=== PATIENT | female | born 1950 | race Caucasian/White ===

== ENCOUNTER 2018-02-19 16:33 | Emergency (ER) | payer OTHER, SELFPAY ==
[2018-02-19 16:35] VITALS: BP 128/69; PULSE 96; PULSE 97; RESP 14; RESP 18; TEMP 36.8; O2SAT 97; O2SAT 98; BMI 22.8
[2018-02-19 16:52] VITALS: O2SAT 96
--- NOTE | 2018-02-19 17:18 | CT_ITS ---
STUDY: CT BRAIN WITHOUT CONTRAST REASON FOR EXAM: Female, 67 years old. Fall with trauma and hit back of head. Patient on Coumadin. RADIATION DOSAGE (If Supplied By Facility): CTDIvol = ( 44.99 ) mGy, DLP = ( 745.49 ) mGycm TECHNIQUE: Transaxial CT imaging of the brain was performed without administration of intravenous contrast material. Individualized dose optimization techniques were used for this CT. COMPARISON: None. FINDINGS: There is minimal left occipital scalp swelling. Normal calvarium. Normal size ventricles and extra-axial spaces for the patient's age. Normal white matter tracts of the cerebral hemispheres. Normal basal ganglia and thalami. Normal brainstem. Normal cerebellum. There is no intracranial hemorrhage. There are no findings of an acute ischemic infarction. Normal visualized paranasal sinuses. CT/Brain/Head without Contrast IMPRESSION: Minimal left occipital scalp swelling. No acute intracranial injury. Electronically Signed: Eusebio Conti MD at 18:27 EDT , Service support ,
--- NOTE | 2018-02-19 17:18 | CT_ITS ---
STUDY: CT CERVICAL SPINE WITHOUT CONTRAST REASON FOR EXAM: Female, 67 years old. Trauma, hit back of head. RADIATION DOSAGE (If Supplied By Facility): CTDIvol = ( 13.92 ) mGy, DLP = ( 259.88 ) mGycm TECHNIQUE: High resolution transaxial imaging was performed without contrast material. Sagittal and coronal images were reconstructed. Individualized dose optimization techniques were used for this CT. COMPARISON: None FINDINGS: Normal craniovertebral junction. There are degenerative changes of the anterior atlantoaxial articulation. Normal odontoid process. There is straightening of March of the normal cervical lordosis. No acute fracture of the vertebral bodies and posterior osseous elements. C2-3: Normal endplates. Normal disc height and morphology. Normal bilateral facet articulations. Normal central canal and intervertebral neuroforamina. C3-4: There is endplate spurring/osteophytes. Moderate disc height narrowing. Mild hypertrophic degenerative arthrosis of the facet articulations. Borderline retrolisthesis of C3 on C4. Early osseous encroachment on the central canal and right intervertebral neuroforamen. C4-5: Near circumferential endplate osteophytes. Moderate disc height narrowing with vacuum phenomenon due to disc dehydration and wide-based posterior disc bulge. Early hypertrophic degenerative arthroses of the bilateral facet articulations. Mild disc encroachment on the anterior central canal. Normal intervertebral neuroforamina. C5-6: Near circumferential endplate osteophytes. Moderate disc height narrowing. Normal bilateral facet articulations. Normal central canal and intervertebral neuroforamina. C6-7: Circumferential endplate osteophytes. Moderately severe disc height narrowing with mild right posterolateral disc protrusion. Early hypertrophic degenerative change of the left facet articulation. Mild osseous and disc encroachment on the right anterior central canal. Mild osseous narrowing of the right intervertebral neuroforamen. C7-T1: Anterior endplate osteophytes. Minor disc height narrowing. Mild hypertrophic degenerative arthrosis of the bilateral facet articulations, with moderate joint space narrowing on the left. Normal central canal and intervertebral neuroforamina. Normal visualized prevertebral soft tissue structures. Additional/interlobular curvilinear densities in the visualized lung apices are consistent with sites of subsegmental atelectasis or scarring. CT/Spine Cervical without Contras IMPRESSION: 1. No acute fracture of the cervical spine. 2. Multilevel degenerative changes, as described above. Electronically Signed: Eusebio Conti MD at 19:18 EDT , Service support ,
--- NOTE | 2018-02-19 17:18 | RAD_ITS ---
STUDY: X-RAY - SACRUM/COCCYX REASON FOR EXAM: Female, 67 years old. Fall backwards. Pain. TECHNIQUE: 3 view(s) of the sacrum and coccyx were obtained. COMPARISON: None. FINDINGS: Normal bilateral sacroiliac joints. Normal visualized sacral ala and fused sacral bodies. Normal sacrococcygeal junction with a normal angulation. Normal coccygeal segments. The presacral soft tissue structures are unremarkable. RAD/Sacrum-Coccyx min 2 Views IMPRESSION: No significant abnormality. Electronically Signed: Juan Jose Lobo MD at 18:34 EDT , Service support ,
--- NOTE | 2018-02-19 17:18 | RAD_ITS ---
STUDY: X-RAY - THORACIC SPINE REASON FOR EXAM: Female, 67 years old. Fall backwards. Hit head and tail bone. TECHNIQUE: 3 view(s) of the thoracic spine were obtained. COMPARISON: None. FINDINGS: Normal kyphosis of the thoracic spine. There is no substantial scoliosis. Normal thoracic vertebrae and endplates. There is diffuse mild intervertebral disc space narrowing with small osteophytes. The soft tissue structures are unremarkable. RAD/Thoracic Spine 3 Views IMPRESSION: Cervico-thoracic spondylosis. No acute pathology. Electronically Signed: Juan Jose Lobo MD at 18:42 EDT , Service support ,
--- NOTE | 2018-02-19 17:18 | RAD_ITS ---
STUDY: X-RAY - PELVIS REASON FOR EXAM: Female, 67 years old. Injury and pain TECHNIQUE: One view of the pelvis was obtained. COMPARISON: None. FINDINGS: There is a non-specific bowel gas pattern. The soft tissues are unremarkable. The visualized iliac wings, sacroiliac joints and sacrum are unremarkable. No abnormalities are seen in the visualized superior and inferior pubic rami. Normal appearing pubic symphysis. The visualized ischial tuberosities are unremarkable. The proximal right femur shows no significant abnormalities. The right acetabulum shows no significant abnormalities. The right hip joint is normal in appearance. The proximal left femur shows no significant abnormalities. The left acetabulum shows no significant abnormalities. The left hip joint is normal in appearance. RAD/Pelvis 1 or 2 Views IMPRESSION: No acute abnormalities are seen in the pelvis. Electronically Signed: Jennifer Ballesteros MD at 18:35 EDT Tel Direct: [phone], Service support ,
--- NOTE | 2018-02-19 17:20 | EKG12_ITS ---
Test Reason : FALL Blood Pressure : / mmHG Vent. Rate : 100 BPM Atrial Rate : 100 BPM P-R Int : 172 ms QRS Dur : 090 ms QT Int : 366 ms P-R-T Axes : 074 -71 082 degrees QTc Int : 472 ms Normal sinus rhythm Left anterior fascicular block Abnormal ECG Confirmed by MENDEZ VARMA, XAVI ([id number]), food expeditor ROSE CARLSON ([id number]) on 02/22/2018 9:02:09 AM Referred By: Confirmed By:XAVI SIMMS MD
--- NOTE | 2018-02-19 17:24 | ED.DCSUM_ITS ---
- ER Visit Summary Date of Service: 02/19/18 Chief Complaint: Fall History of Present Illness: The patient is a 67 F presenting after fall. Patient was playing with children and she was sitting on a low barstool. She fell backwards hitting the back of her head. She did not lose consciousness. After the fall she felt dizzy. She has had nausea. She complains of pain in the back of her head and pain of her tailbone. She is on Coumadin for history of A. fib. Last tetanus is unknown. Physical Examination: Vitals are stable. Patient is afebrile. Alert no acute distress. HEENT exam mild occipital tenderness with no laceration Neck is nontender, c-collar in place Lungs are clear and equal bilaterally. Heart is regular rate and rhythm. Abdomen is soft nontender nondistended. Extremities are unremarkable. Back: Lumbar tenderness diffuse, no step-off Skin is warm and dry. No focal neurologic deficit. Remainder of exam is unremarkable. Emergency Department Course and Treatment: Patient given morphine, Zofran IV. EKG is sinus rate of 100. CT head shows left occipital scalp swelling with no intracranial hemorrhage. CT C-spine shows no fracture. X-ray of the thoracic and lumbar spine shows no fracture. Pelvis x-ray is negative for fracture. CBC , chemistries unremarkable other than BUN 21, creatinine 1.04. INR 2.2. Troponin is 0.019. Patient continues to have dizziness with standing. She is able to ambulate to the bathroom with assistance. She still complains of dizziness with sitting up on reevaluation. Discussed with the hospitalist. Patient was evaluated in the ED and it is felt that she does not require admission at this time. She will be sent home with close outpatient follow-up with her primary care physician. She is advised signs and symptoms for which to return to the emergency department. Disposition: Discharged home Impression: Closed head injury status post mechanical fall This note was generated with [employer] dictation software. It may contain incorrect words, spelling, and punctuation that were not noted in review of the chart prior to signing ED Disposition - Plan for ED Patient: Disposition: Home or Assisted Living Chief Complaint: Fall Instructions: ED Head Injury Closed Referrals: Renetta Mendoza MD [STAFF PHYSICIAN] -
--- NOTE | 2018-02-19 17:45 | RAD_ITS ---
STUDY: X-RAY - LUMBAR SPINE REASON FOR EXAM: Female, 67 years old. Fall backwards. Hit tailbone. Pain. TECHNIQUE: 3 view(s) of the lumbar spine were obtained. COMPARISON: None FINDINGS: Normal lumbar lordosis. There is no substantial scoliosis. There is a normal alignment of the vertebrae. Normal vertebral bodies and endplates. Normal disc space heights. The soft tissue structures are unremarkable. RAD/Lumbar Spine 2 or 3 Views IMPRESSION: No significant abnormality identified. Electronically Signed: Juan Jose Lobo MD at 18:41 EDT , Service support ,
[2018-02-19 17:47] LABS: Absolute Neutrophil Count 5.4 X10^3/uL (2.0-7.7); Basophil# 0.04 X10^3/uL; Basophil% 0.5 % (0-1); Eosinophil# 0.16 X10^3/uL; Hematocrit 37.6 % (37-47); Hemoglobin 12.4 g/dl (12.0-15.0); Lymphocyte % 22.3 % (19-41); Mean Corpuscular Hgb 30.5 pg (27.0-32.0); Mean Corpuscular Volume 92.6 fL (81-99); Mean Platelet Vol. 10.8 fl (6.2-12.0); Monocyte# 0.65 X10^3/uL; Neutrophil # 5.42 X10^3/uL (2.7-7.7); Neutrophil % 67.1 % (47-70); Platelet Count 263 K/mm3 (150-450); RBC Distribution Width CV 13.5 % (11.6-14.6); RBC Distribution Width SD 45.1 fl (35.1-43.9); Red Blood Count 4.06 M/mm3 (4.2-5.4); White Blood Count 8.1 K/mm3 (4.4-11.0)
[2018-02-19 17:53] LABS: POSITIVE COUNT NO; POSITIVE DIFFERENTIAL NO; POSITIVE MORPHOLOGY NO
[2018-02-19 17:54] LABS: International Normalized Ratio 2.2; Prothrombin Time (Protime)PT. 24.9 SECONDS (11.7-14.9)
[2018-02-19 18:00] LABS: BUN 21 mg/dL (7-18); Creatinine, Serum 1.04 mg/dL (0.55-1.02); Glucose 93 mg/dL (74-106)
[2018-02-19 18:01] LABS: Anion Gap 5 (5-15); BUN/Creat Ratio 20.2 RATIO (10-20); Chloride 108 mmol/L (98-107); EST Glomerular Filtration Rate 56 mL/min (>60); Est Glom Filt Rate - Afr Amer 68 mL/min (>60); Estimated Creatinine Clearance 38.22 ml/min; Potassium 3.8 mmol/L (3.5-5.1); Sodium Level 142 mmol/L (136-145)
--- NOTE | 2018-02-19 21:26 | ED.DEP ---
ED Disposition - Plan for ED Patient: Chief Complaint: Fall Instructions: ED Head Injury Closed Referrals: Renetta Mendoza MD [STAFF PHYSICIAN] -
[2018-02-19 21:46] VITALS: BP 115/70; PULSE 80; PULSE 85; RESP 14; O2SAT 98
--- NOTE | 2018-02-19 23:26 | CON.PCM_ITS ---
Problem List (1) Fall Status: Acute (2) Afib Status: Chronic (3) Mitral valve disorder Status: Chronic (4) Concussion Status: Acute (5) Scalp contusion Status: Acute Reason for Consult Date of Consultation: 02/19/18 Reason for Consultation: Fall History of Present Illness: The patient is a 67 year old F with a PMH as above, presents to the ER after a mechanical fall at home. She was playing on a stool with her grandkids and she slipped off the stool and her her head on a table behind her. She did not have any LOC, however when she was helped up by her family she felt very lightheaded and dizzy and almost fainted. At no point prior to this episode did she have palpitations, lightheadedness, dizziness or blurry vision. In the ER CT head, c- spine and plain films of her spine were negative for any trauma. She currently denies any significant pain and while lying in bed she does not have a headache , lightheadedness or dizziness. Past Medical History Past Medical History (Chronic Problems): Chronic Problems Afib (Chronic) Mitral valve disorder (Chronic) Allergies No Known Allergies Allergy (Verified 02/19/18 16:34) Home Medications: Ambulatory Orders Medication Instructions Recorded Metoprolol Tartrate 6.25 mg PO BID 06/27/15 Tikosyn 0.25 mg PO BID 06/27/15 Warfarin [Coumadin ([facility])] 2 mg PO DAILY 06/27/15 Warfarin [Coumadin ([facility])] 3 mg PO COLON 06/27/15 Surgical History: - - [facility] Lives: Alone Smoking Status: Never smoker Alcohol: None Drugs: None - *Family History Maternal History Items: No pertinent history Review of Systems Constitutional: Denies: Chills, Fever, Weight Change HEENT: Denies: Head Aches, Sinus Congestion, Sinus Drainage Cardiovascular: Denies: Chest Pain, Palpitations Respiratory: Denies: Cough, Shortness of breath at rest, Sputum production Gastrointestinal: Denies: Abdominal Pain, Nausea, Vomiting Genitourinary: Denies: Dysuria Musculoskeletal: Denies: Joint Pain, Joint Tenderness Skin: Denies: Rash, Wounds Neurological: Reports: Headaches. Denies: Focal weakness, Numbness, Tingling Psychiatric: Denies: Anxiety, Depression Hematologic/ Lymphatic: Denies: Easy Bruising, Easy Bleeding - Physical Exam General: Alert, Oriented x3, Cooperative, No apparent distress HEENT: Atraumatic, PERRLA, EOMI, Normocephalic, - - contusion on her left occiput Neck: Supple, No JVD Lungs: Clear to auscultation, Normal air movement, No rhonchi, No wheeze, No rales Cardiovascular: Regular rate, Regular Rhythm, Normal S1, Normal S2, No murmurs Abdomen: Soft, Non Tender, Non-Distended, No Hepato-splenomegaly Extremities: No edema, Capillary Refill Less than 3 Seconds Skin: No rashes, No breakdown Musculoskeletal: No Tenderness to Palpation of Joints or Extremities Neurological: Neuro grossly intact, Sensory exam intact to light touch and pain Psych/Mental Status: Normal Affect, Appropriate Vital Signs Temp Pulse Resp BP Pulse Ox 98.3 F 85 14 115/70 98 02/19/18 16:35 02/19/18 21:46 02/19/18 21:46 02/19/18 21:46 02/19/18 21:46 Oxygen Delivery Method Room Air Weight: 117 lb Body Mass Index (BMI) 22.8 Laboratory Tests Past 24 Hrs 02/19/18 02/19/18 02/19/18 16:55 16:55 16:55 WBC 8.1 RBC 4.06 L Hgb 12.4 Hct 37.6 MCV 92.6 MCH 30.5 MCHC 33.0 RDW 13.5 RDW Differential 45.1 H Plt Count 263 MPV 10.8 Immature Gran % (Auto) 0.100 Neut % (Auto) 67.1 Lymph % (Auto) 22.3 Boyd % (Auto) 8.0 Eos % (Auto) 2.0 Baso % (Auto) 0.5 Absolute Neuts (auto) 5.4 Absolute Lymphs (auto) 1.80 Total Counted Not Reportable PT 24.9 H INR 2.2 Sodium 142 Potassium 3.8 Chloride 108 H Carbon Dioxide 29.0 Anion Gap 5 BUN 21 H Creatinine 1.04 H Estim Creat Clear Calc 38.22 Est GFR (MDRD) Af Amer 68 Est GFR (MDRD) Non-Af 56 L BUN/Creatinine Ratio 20.2 H Glucose 93 Calcium 9.0 Troponin I 0.019 Assessment/Plan All Active Problems Fall (Acute) Concussion (Acute) Scalp contusion (Acute) 1. Concussion after a mechanical fall/Contusion - CT brain is negative and she has a lot of family she can stay with - I discussed with her what we would do in the hospital and she prefers to go home - She is to take it easy with no strenuous activity and no intense mental activity - She is to follow-up with her PCP on tuesday or Tuesday - I advised that she return to the hospital if she has any change in her symptoms or worsening of her symptoms - Her contusion does not appear to be bleeding so local wound care was advised 2. A-fib - Stable and does not appear to be the cause of the fall - She can continue her coumadin as usual since there was no bleeding on her head CT - C/w mary kate Code Visit Inpatient E&M: [id number] [facility] L3
== END 2018-02-19 21:50 | disposition home or self-care (01) ==
LOC: ED 18:48
PROVIDERS: Emergency Provider Emergency Medicine; Family Provider Internal Medicine; PCP Internal Medicine
DX: S06.0X0A Concussion without loss of consciousness, initial encounter (principal); S00.93XA Contusion of unspecified part of head, initial encounter; I48.91 Unspecified atrial fibrillation; Z79.01 Long term (current) use of anticoagulants; Z79.899 Other long term (current) drug therapy; W07.XXXA Fall from chair, initial encounter; Y93.89 Activity, other specified; Y92.89 Other specified places as the place of occurrence of the external cause; Y99.8 Other external cause status
CPT/HCPCS: 70450; 72072; 72100; 72125; 72170; 72220; 80048; 84484; 85025; 85610; 93005; 99285; A4216

== ENCOUNTER 2018-07-10 09:15 | Observation (INO) | payer OTHER, SELFPAY ==
[2018-07-10] VITALS (27 sets, daily range): BP systolic 87–140; BP diastolic 49–93; PULSE 62–150; RESP 14–24; TEMP 36.5–36.9; O2SAT 94–100; BMI 25.9; BMI 22.2; BMI 22.3
--- NOTE | 2018-07-10 09:18 | EKG12_ITS ---
Test Reason : CP Blood Pressure : / mmHG Vent. Rate : 125 BPM Atrial Rate : 125 BPM P-R Int : 178 ms QRS Dur : 084 ms QT Int : 332 ms P-R-T Axes : 083 -76 080 degrees QTc Int : 479 ms Sinus tachycardia with Premature atrial complexes with Aberrant conduction Left anterior fascicular block Possible Anterior infarct , age undetermined Abnormal ECG Confirmed by MENDEZ VARMA, XAVI ([id number]), supervising film or videotape editor ROSE CARLSON ([id number]) on 07/14/2018 8:56:09 AM Referred By: RAYN/JESUS Confirmed By:XAVI SIMMS MD
[2018-07-10] MEDS: Aspirin 81 MG TAB.CHEW 324 MG PO (09:24)
--- NOTE | 2018-07-10 09:26 | RAD_ITS ---
STUDY: X-RAY CHEST REASON FOR EXAM: Female, 67 years old. Chest pain. History of mitral valve replacement. TECHNIQUE: Single AP portable view of the chest. COMPARISON: Comparison is made with prior study dated June 27, 2015. FINDINGS: EKG electrodes are seen. Hyperinflation. Stable pleural parenchymal changes at the left lung base suggestive of scarring. Sternal cerclage wires are present from a prior sternotomy. Normal mediastinum and debra. Normal visualized pulmonary arteries. Normal visualized aortic arch and descending thoracic aorta. Normal visualized thoracic spine. Normal visualized ribs, clavicles, and shoulders. There is no demonstrated abnormality of the visualized soft tissue structures of the upper abdomen. RAD/Chest 1 View (Portable) IMPRESSION: Stable pleural parenchymal changes at the left lung base. Electronically Signed: Napoleon Gonsalez MD at 9:44 EST , Service support ,
[2018-07-10 09:31] LABS: Absolute Lymphocyte Count 1.66 X10^3/ul (0.83-4.51); Absolute Neutrophil Count 7.8 X10^3/uL (2.0-7.7); Basophil# 0.03 X10^3/uL; Basophil% 0.3 % (0-1); Eosinophil# 0.06 X10^3/uL; Eosinophils% 0.6 % (0-5); Hematocrit 45.4 % (37-47); Hemoglobin 14.7 g/dl (12.0-15.0); Lymphocyte # 1.66 X10^3/ul (4.0); Lymphocyte % 16.3 % (19-41); Mean Corp Hgb Conc 32.4 g/gl (32-36); Mean Corpuscular Hgb 30.4 pg (27.0-32.0); Mean Corpuscular Volume 93.8 fL (81-99); Mean Platelet Vol. 10.2 fl (6.2-12.0); Monocyte# 0.61 X10^3/uL; Neutrophil % 76.6 % (47-70); Platelet Count 318 K/mm3 (150-450); RBC Distribution Width CV 13.6 % (11.6-14.6); RBC Distribution Width SD 45.4 fl (35.1-43.9); Red Blood Count 4.84 M/mm3 (4.2-5.4); White Blood Count 10.2 K/mm3 (4.4-11.0)
[2018-07-10 09:32] LABS: POSITIVE COUNT NO; POSITIVE DIFFERENTIAL NO; POSITIVE MORPHOLOGY NO
--- NOTE | 2018-07-10 09:33 | ED.VISSUMM ---
- ER Visit Summary Date of Service: 07/10/18 Chief Complaint: Palpitations and chest pain History of Present Illness: The patient is a 67 F history of atrial flutter on Coumadin with a prior prosthetic mitral valve replacement. Patient states on Tuesday she started having heart rate. Intermittent dyspnea. And today he had some chest discomfort. She denies any fever or chills. No leg pain or swelling. Physical Examination: Older female no acute distress. Vital signs are stable. Her pulse ox 100% on 2 L no hypoxia. H EENT exam unremarkable. Neck nontender. No lymphadenopathy. Lungs clear to auscultation bilaterally. Heart tachycardic rate about 120. Sounds regular with occasional PVC. Obvious P waves on the monitor. Abdomen is soft and nontender. Normal bowel sounds no peritoneal signs. Remedies moves all 4. Calves nontender without edema or cords. Neurologically she is awake and alert with no focal motor deficits. She is moving all 4 extremities. Test Results: Initial EKG shows a sinus tachycardia with PACs and PVCs. No signs of HI or ischemia. Rate of 125. Chest x-ray shows chronic changes left lung base but no acute change or process read both by myself and the radiologist. CBC normal white count of 10. Hemoglobin 14. Chemistries normal. She is on Coumadin INR is subtherapeutic at 1.6 and her troponin is normal. Emergency Department Course and Treatment: Patient will undergo cardiac workup. She is on Coumadin. When offered aspirin she wanted to hold at this time. Treatment Plan: Repeat exam at 10:40 AM the patient is doing well. She and I went over all of her test results. Due to her nonspecific chest pain I do feel she warrants admission for further evaluation and workup and cardiac monitoring. She is comfortable with that plan. I have the hospitalist on page. Disposition: Admission Impression: Acute palpitations with chest pain of uncertain etiology This note was generated with [employer] dictation software. It may contain incorrect words, spelling, and punctuation that were not noted in review of the chart prior to signing ED Disposition - Plan for ED Patient: Referrals: Lenora Louise MD [Primary Care Provider] -
--- NOTE | 2018-07-10 09:36 | ED.DCSUM_ITS ---
- ER Visit Summary Date of Service: 07/10/18 Chief Complaint: Palpitations and chest pain History of Present Illness: The patient is a 67 F history of atrial flutter on Coumadin with a prior prosthetic mitral valve replacement. Patient states on Tuesday she started having heart rate. Intermittent dyspnea. And today he had some chest discomfort. She denies any fever or chills. No leg pain or swelling. Physical Examination: Older female no acute distress. Vital signs are stable. Her pulse ox 100% on 2 L no hypoxia. H EENT exam unremarkable. Neck nontender. No lymphadenopathy. Lungs clear to auscultation bilaterally. Heart tachycardic rate about 120. Sounds regular with occasional PVC. Obvious P waves on the monitor. Abdomen is soft and nontender. Normal bowel sounds no peritoneal signs. Remedies moves all 4. Calves nontender without edema or cords. Neurologically she is awake and alert with no focal motor deficits. She is moving all 4 extremities. Test Results: Initial EKG shows a sinus tachycardia with PACs and PVCs. No signs of ME or ischemia. Rate of 125. Chest x-ray shows chronic changes left lung base but no acute change or process read both by myself and the radiologist. CBC normal white count of 10. Hemoglobin 14. Chemistries normal. She is on Coumadin INR is subtherapeutic at 1.6 and her troponin is normal. Emergency Department Course and Treatment: Patient will undergo cardiac workup. She is on Coumadin. When offered aspirin she wanted to hold at this time. Treatment Plan: Repeat exam at 10:40 AM the patient is doing well. She and I went over all of her test results. Due to her nonspecific chest pain I do feel she warrants admission for further evaluation and workup and cardiac monitoring. She is comfortable with that plan. I have the hospitalist on page. Disposition: Admission Impression: Acute palpitations with chest pain of uncertain etiology This note was generated with [email or web address] dictation software. It may contain incorrect words, spelling, and punctuation that were not noted in review of the chart prior to signing ED Disposition - Plan for ED Patient: Referrals: Lenora Louise MD [Primary Care Provider] -
[2018-07-10 09:49] LABS: International Normalized Ratio 1.6; Prothrombin Time (Protime)PT. 19.2 SECONDS (11.7-14.9)
[2018-07-10 09:57] LABS: Anion Gap 11 (5-15); BUN 19 mg/dL (7-18); BUN/Creat Ratio 16.8 RATIO (10-20); Calcium,Total 9.8 mg/dL (8.5-10.1); Chloride 105 mmol/L (98-107); Creatinine, Serum 1.13 mg/dL (0.55-1.02); EST Glomerular Filtration Rate 51 mL/min (>60); Est Glom Filt Rate - Afr Amer 62 mL/min (>60); Estimated Creatinine Clearance 42.29 ml/min; Glucose 100 mg/dL (74-106); Potassium 4.3 mmol/L (3.5-5.1); Sodium Level 143 mmol/L (136-145)
--- NOTE | 2018-07-10 10:58 | PCM.HP.STD ---
Problem List (1) Afib Status: Chronic Qualifiers: Atrial fibrillation type: paroxysmal Qualified Code(s): I48.0 - Paroxysmal atrial fibrillation (2) Mitral valve disorder Status: Chronic (3) Atrial fibrillation with RVR Status: Acute (4) Chest discomfort Status: Acute History of Present Illness Date of Admission: 07/10/18 Chief Complaint: Palpitation The patient is a 67 year old F 67-year-old lady with past medical history is none for paroxysmal A. fib on Tikosyn who presents with palpitations. Patient symptoms apparently started 2 days prior to her admission. In addition to patient's palpitations she did experience chest discomfort. Patient presented to the emergency department in view of the persistent nature of his symptoms. In the ED initial cardiac enzymes came back unremarkable EKG revealed sinus rhythm with multiple PACs. Patient was admitted to the aggressive care unit placed on telemetry monitoring which did reveal A. fib with RVR with heart rate as high as 190. Past Medical History Past Medical History (Chronic Problems): Chronic Problems Afib (Chronic) Mitral valve disorder (Chronic) Allergies No Known Allergies Allergy (Verified 07/10/18 09:15) Home Medications: Ambulatory Orders Medication Instructions Recorded Metoprolol Tartrate 6.25 mg PO BID PRN PRN 06/27/15 Tikosyn 0.25 mg PO BID 06/27/15 Warfarin [Coumadin ([facility])] 2 mg PO DAILY 06/27/15 Amoxicillin [Amoxil] 500 mg PO TID 07/10/18 Surgical History: - - MVR Smoking Status: Never smoker - *Family History Maternal History Items: Heart Disease Review of Systems Constitutional: Denies: Anorexia, Chills, Fever, Night Sweats, Weight Change HEENT: Denies: Head Aches, Sinus Congestion, Sinus Drainage Cardiovascular: Reports: Chest Pain, Palpitations. Denies: Orthopnea, Paroxysmal Noc. Dyspnea Respiratory: Denies: Cough, Shortness of breath at rest, Shortness of breath upon exertion, Sputum production Gastrointestinal: Denies: Abdominal Pain, Hematemesis, Hematochezia, Nausea, Melena, Vomiting Genitourinary: Denies: Dysuria, Frequency, Hematuria, Urgency Musculoskeletal: Denies: Joint Pain, Joint Tenderness Skin: Denies: Rash Neurological: Denies: Focal weakness, Numbness, Tingling Psychiatric: Denies: Homicidal Ideations, Suicidal Ideations Hematologic/ Lymphatic: Denies: Easy Bruising, Easy Bleeding VTE Information - Inpt Only VTE Present on Admission: No VTE Mechan Device Prophylaxis: Knee High CLAUDIA Hose VTE Pharm Prophylaxis ordered?: Yes Patient Problems: Active and Suspected Problems Atrial fibrillation with RVR (Acute) Chest discomfort (Acute) Objective: GENERAL: cooperative HEENT: Atraumatic; EYES; Anicteric, Normal Conjunctiva NECK; supple, normal thyroid, n RESPIRATORY: Diminished to auscultation bilaterally, CARDIOVASCULAR: Irregularly irregular, tachycardic GI: soft, non-tender, normoactive bowel sounds, : No Renal angle tenderness; EXTREMITIES: No edema, no clubbing, no cyanosis. MUSCULOSKELETAL: No Joint Tenderness; NEURO: Awake; no lateralizing signs. SKIN: No Rash PSYCH; Normal affect - Physical Exam Vital Signs Temp Pulse Resp BP Pulse Ox 97.7 F L 121 H 24 H 125/73 H 100 07/10/18 09:17 07/10/18 09:17 07/10/18 09:17 07/10/18 09:17 07/10/18 09:21 Oxygen Flow Rate (L/min) 2 Oxygen Delivery Method Nasal Cannula Weight: 68.635 kg Body Mass Index (BMI) 25.9 Laboratory Tests Past 24 Hrs 07/10/18 07/10/18 07/10/18 09:25 09:25 09:25 WBC 10.2 RBC 4.84 Hgb 14.7 Hct 45.4 MCV 93.8 MCH 30.4 MCHC 32.4 RDW 13.6 RDW Differential 45.4 H Plt Count 318 MPV 10.2 Immature Gran % (Auto) 0.200 Neut % (Auto) 76.6 H Lymph % (Auto) 16.3 L Caswell % (Auto) 6.0 Eos % (Auto) 0.6 Baso % (Auto) 0.3 Absolute Neuts (auto) 7.8 H Absolute Lymphs (auto) 1.66 Total Counted Not Reportable PT 19.2 H INR 1.6 Sodium 143 Potassium 4.3 Chloride 105 Carbon Dioxide 27.0 Anion Gap 11 BUN 19 H Creatinine 1.13 H Estim Creat Clear Calc 42.29 Est GFR (MDRD) Af Amer 62 Est GFR (MDRD) Non-Af 51 L BUN/Creatinine Ratio 16.8 Glucose 100 Calcium 9.8 Troponin I < 0.015 Assessment/Plan All Active Problems Fall (Resolved) Concussion (Resolved) Scalp contusion (Resolved) Atrial fibrillation with RVR (Acute) Chest discomfort (Acute) Patient is a 67-year-old lady with past medical history significant for paroxysmal A. fib presenting with palpitations and chest discomfort 1. Paroxysmal A. fib presented with rapid ventricular response. Patient has been admitted to a monitored bed. Patient is on Tikosyn continued with heart rates been as high as 190 patient was started on Cardizem drip titrated to keep rate less than 100. As part of patient management ordered serial cardiac enzymes 2D echo and consultation placed to cardiology. Patient already on systemic anticoagulation with Coumadin with a subtherapeutic INR 1.6 on admission 2. Chest pain: Patient has been placed on a monitored bed as described above ordered serial cardiac enzymes to rule out OR. Discussions were held with patient to undergo subsequent evaluation with possible stress test which patient is declining at this point 3. Renal insufficiency patient started on fluids with monitoring of electrolyte 4. Subtherapeutic INR did continue with home dose of Coumadin with daily monitoring of INR 5. DVT prophylaxis patient is on Coumadin no additional measures warranted Active Medications Al Hydroxide/Mg Hydroxide (Mylanta Ii) 30 ml PO Q6H PRN PRN PRN Reason: Gastric burning Dofetilide (Tikosyn) 250 mcg PO BID [facility] Diltiazem HCl 125 mg/ Dextrose 125 mls @ 5 mls/hr IV .Q25H [facility] Last Admin: 07/10/18 14:36 Dose: 5 mls/hr Magnesium Hydroxide (Milk Of Magnesia) 30 ml PO DAILY PRN PRN Reason: Constipation Metoprolol Tartrate (Lopressor (Beta Zohaib)) 6.25 mg PO BID [facility] Nutritional Formula (Lactose Free) (Ensure Enlive) 120 ml PO 4X/DAY [facility] Last Admin: 07/10/18 13:15 Dose: Not Given Psyllium Hydrophilic Mucilloid (Metamucil) 1 packet PO DAILY PRN PRN PRN Reason: CONSTIPATION Warfarin Sodium (Coumadin (Pbkc)) 2 mg PO DAILY@1700 [facility] Zolpidem Tartrate (Ambien (Generic)) 5 mg PO QHS PRN PRN PRN Reason: INSOMNIA Clinical Impression(s) from Imaging Studies Chest X-Ray 07/10/18 09:26 IMPRESSION: Stable pleural parenchymal changes at the left lung base. Electronically Signed: Napoleon Gonsalez MD at 9:44 EST , Service support , Code Visit OBSV E&M: [id number] Initial observation care L3
--- NOTE | 2018-07-10 11:25 | ECHOD_ITS ---
Reason For Study: CHEST PAIN Procedure This was a 2D Doppler, Color Flow transthoracic echocardiogram. Exam performed portable in patient room. Left Ventricle Normal LV size. Left ventricular systolic function is normal. The estimated ejection fraction is 60 %. Normal diastology for age. No regional wall motion abnormalities noted. Right Ventricle Normal RV size. Normal systolic function. Atria The left atrium is moderately enlarged. Normal right atrium. Mitral Valve Stable appearing mechanical mitral valve apparatus. Tricuspid Valve Normal tricuspid valve. Aortic Valve Trisinus/trileaflet aortic valve. Pulmonic Valve Normal pulmonic valve. Great Vessels Normal aortic root. The pulmonary artery is normal size. Normal inferior vena cava. Pericardium/Pleural No pericardial effusion. MMode/2D Measurements & Calculations LVIDd: 4.2 cm IVSd: 0.98 cm Ao root diam: 2.9 cm LVIDs: 3.1 cm LVPWd: 1.1 cm RVDd: 3.3 cm FS: 24.6 % LAV(MOD-bp): 70.3 ml LA A4 area: 24.8 cm2 LA dimension(2D): 4.2 cm LAV(MOD-bp) Indexed: 40.5 ml/m2 LAV(MOD-sp2): 59.3 ml LAV(MOD-sp4): 77.5 ml RA A4 area: 11.4 cm2 Time Measurements MV dec time: 0.19 sec Doppler Measurements & Calculations MV E max torsten: 152.2 cm/sec MV V2 max: 162.3 cm/sec Ao V2 max: 128.4 cm/sec MV A max torsten: 101.1 cm/sec MV max P.5 mmHg Ao max P.6 mmHg MV E/A: 1.5 MV V2 mean: 102.2 cm/sec MV mean P.8 mmHg MV V2 VTI: 26.9 cm LV V1 max: 105.4 cm/sec PA V2 max: 64.3 cm/sec MV P1/2t-pr_phl: 67.6 msec LV V1 max P.4 mmHg Interpretation Summary Normal LV size. Left ventricular systolic function is normal. The estimated ejection fraction is 60 %. Normal diastology for age. Compared to prior study, there is no significant change. Ordering Physician: Maikel Serrano Referring Physician: BRUNA BAUER Performed By: Marika De Leon, PAUCS, RVT
--- NOTE | 2018-07-10 11:28 | EKG12_ITS ---
Test Reason : CP ADMISSION Blood Pressure : / mmHG Vent. Rate : 116 BPM Atrial Rate : 116 BPM P-R Int : 196 ms QRS Dur : 088 ms QT Int : 350 ms P-R-T Axes : 092 -72 083 degrees QTc Int : 486 ms Sinus tachycardia Pulmonary disease pattern Left anterior fascicular block Nonspecific ST abnormality Abnormal ECG Confirmed by MENDEZ VARMA, XAVI ([id number]), clinical editor ROSE CARLSON ([id number]) on 07/14/2018 9:49:23 AM Referred By: ANASTACIO Confirmed By:XAVI SIMMS MD
[2018-07-10 11:49] LABS: Magnesium 2.5 mg/dL (1.6-2.6)
--- NOTE | 2018-07-10 14:06 | EKG12_ITS ---
Test Reason : RHYTHM Blood Pressure : / mmHG Vent. Rate : 130 BPM Atrial Rate : 174 BPM P-R Int : 000 ms QRS Dur : 090 ms QT Int : 324 ms P-R-T Axes : 107 -72 085 degrees QTc Int : 476 ms Atrial flutter with variable block Pulmonary disease pattern RSR' or QR pattern in V1 suggests right ventricular conduction delay Left anterior fascicular block Abnormal ECG When compared with ECG of 10-JUL-2018 11:27, MANUAL COMPARISON REQUIRED, DATA IS UNCONFIRMED Confirmed by MENDEZ VARMA, XAVI ([id number]), editor managing newspaper ROSE CARLSON ([id number]) on 07/18/2018 11:48:20 AM Referred By: ANASTACIO Confirmed By:XAVI SIMMS MD
[2018-07-10] MEDS: 0.9% Normal Saline 1,000 ML 100 ML IV (15:59)
--- NOTE | 2018-07-10 17:10 | EKG12_ITS ---
Test Reason : SEP Blood Pressure : / mmHG Vent. Rate : 091 BPM Atrial Rate : 091 BPM P-R Int : 258 ms QRS Dur : 100 ms QT Int : 350 ms P-R-T Axes : 098 -71 071 degrees QTc Int : 430 ms Sinus rhythm with 1st degree A-V block Incomplete right bundle branch block Left anterior fascicular block Possible Anterior infarct , age undetermined Abnormal ECG When compared with ECG of 09-JUL-2018 12:18, MANUAL COMPARISON REQUIRED, DATA IS UNCONFIRMED Confirmed by MENDEZ VARMA, XAVI ([id number]), general expeditor ROSE CARLSON ([id number]) on 07/14/2018 9:26:50 AM Referred By: MENDEZ Confirmed By:XAVI SIMMS MD
--- NOTE | 2018-07-10 17:22 | PCM.CONS.C ---
Reason for Consult Date of Consultation: 07/10/18 Reason for Consultation: Palpitations History of Present Illness: The patient is a 67 year old F with past medical history is for paroxysmal A. fib on Tikosyn who presents with palpitations. She has a history of mitral valve replacement with a mechanical mitral valve over 25 years ago. Patient symptoms apparently started 2 days prior to her admission. In addition to patient's palpitations she did experience chest discomfort. Patient presented to the emergency department in view of the persistent nature of his symptoms. In the ED initial cardiac enzymes came back unremarkable EKG revealed sinus rhythm with multiple PACs. She subsequently appeared to have gone into atrial fibrillation with a rapid ventricular response rate with rates going up over 150 bpm. She was admitted to the telemetry unit she was started on intravenous Cardizem and says that she feels better at this time. She has not had any further chest pain and no dizziness. Past Medical History Allergies/Adverse Reactions: Allergies No Known Allergies Allergy (Verified 07/10/18 09:15) Home Medications: Ambulatory Orders Medication Instructions Recorded Metoprolol Tartrate 6.25 mg PO BID PRN PRN 06/27/15 Tikosyn 0.25 mg PO BID 06/27/15 Warfarin [Coumadin ([facility]KC)] 2 mg PO DAILY 06/27/15 Amoxicillin [Amoxil] 500 mg PO TID 07/10/18 Past Medical History (Chronic Problems): Chronic Problems Afib (Chronic) Mitral valve disorder (Chronic) Surgical History: - - MVR - *Family History Maternal History Items: Heart Disease Smoking Status: Never smoker Alcohol: None Drugs: None Review of Systems - Review of Systems General: Denies: Fever, Night Sweats, Fatigue HEENT: Denies: Vision Change Cardiovascular: Reports: Chest Discomfort, Palpitations. Denies: Shortness of Breath, Orthopnea, PND, Peripheral Edema, Lightheadedness, Dizziness, Near Syncope, Syncope Respiratory: Denies: Cough, Sputum Production, Hemoptysis Gastrointestinal: Denies: Hematemesis, Hematochezia, Melena Genitourinary: Denies: Dysuria, Hematuria Muscoloskeletal: Denies: Myalgias Skin: Denies: Rash Neurological: Denies: Dizziness Psychiatric: Denies: Anxiety Endocrine: Denies: Unexplained Weight Loss Hematologic/ Lymphatic: Denies: Anemia Subjectve: Pleasant lady in no apparent distress Objective: Vital Signs Temp Pulse Resp BP Pulse Ox 98.5 F 91 19 H 108/69 100 07/10/18 15:00 07/10/18 16:00 07/10/18 16:00 07/10/18 16:00 07/10/18 16:00 Oxygen Flow Rate (L/min) 2 Oxygen Delivery Method Nasal Cannula Weight: 114 lb Body Mass Index (BMI) 22.2 Intake and Output for Last 24 Hours 07/08/18 07/09/18 07/10/18 23:59 23:59 23:59 Intake Total 0 / 0 Balance 0 / 0 General: Awake, Alert, Oriented x 3 HEENT: PERRL, EOMI, Sclera Non Icteric Neck: Supple, Good ROM, No Lymph Node Enlargement Lungs: Clear to auscultation Cardiovascular: Irregular Rhythm, Normal S1, Normal S2, No Murmurs, No Rubs, No Gallops Vascular: No Carotid Bruits, Normal Femoral Pulses, Normal Radial Pulses, Normal Dorsalis Pedal Pulse, Normal Posterior Tibial Pulses Abdomen: Bowel Sounds Present, Soft, Non Tender, No HSM, No Organomegaly Extremities: No Cyanosis, No Clubbing, No edema Musculoskeletal: No Erythema Skin: No Rashes Lymphatic: No Lymph Node Enlargement Neurological: No Focal Motor or Sensory Deficit 07/10/18 09:25: WBC 10.2, RBC 4.84, Hgb 14.7, Hct 45.4, MCV 93.8, MCH 30.4, MCHC 32.4, RDW 13.6, RDW Differential 45.4 H, Plt Count 318, MPV 10.2, Immature Gran % (Auto) 0.200, Neut % (Auto) 76.6 H, Lymph % (Auto) 16.3 L, Morgan % (Auto) 6.0, Eos % (Auto) 0.6, Baso % (Auto) 0.3, Absolute Neuts (auto) 7.8 H, Total Counted Not Reportable 07/10/18 09:25: PT 19.2 H, INR 1.6 07/10/18 09:25: Sodium 143, Potassium 4.3, Chloride 105, Carbon Dioxide 27.0, Anion Gap 11, BUN 19 H, Creatinine 1.13 H, Est GFR (MDRD) Af Amer 62, Est GFR (MDRD) Non-Af 51 L, BUN/Creatinine Ratio 16.8, Glucose 100, Calcium 9.8, Troponin I < 0.015 07/10/18 09:25: Magnesium 2.5 07/10/18 13:05: Troponin I < 0.015 07/10/18 15:50: Troponin I < 0.015 Rhythm: EKG: Initial EKG demonstrated atrial fibrillation flutter with rapid ventricular ventricular response rate. EKG from 5:15 PM demonstrates sinus rhythm with a first-degree AV block and a right bundle branch block. ECHO: Preserved left ventricular systolic function and is stable mechanical mitral valve Assessment/Plan 1. Atrial tachyarrhythmia Patient appears to have a history of paroxysmal atrial fibrillation flutter. My recommendation at this time will be to continue him on the Tikosyn and increase his beta-neeraj with his metoprolol to 25 mg twice a day. Would DC intravenous diltiazem at this time Continue anticoagulation with Lovenox bridging Increase Coumadin to obtain therapeutic INR of 2.5-3.5 2. Mitral valve replacement Patient is status post mitral valve replacement which appears to be functioning well by echocardiographic exam. We will continue to follow. Antibiotic prophylaxis per AHA recommendations. Thank you for allowing me to participate in the care of your patient. Please don't hesitate to call if any issues arise
--- NOTE | 2018-07-10 17:26 | CON.PCM_ITS ---
Reason for Consult Date of Consultation: 07/10/18 Reason for Consultation: Palpitations History of Present Illness: The patient is a 67 year old F with past medical history is for paroxysmal A. fib on Tikosyn who presents with palpitations. She has a history of mitral derrick ve replacement with a mechanical mitral valve over 25 years ago. Patient symptoms apparently started 2 days prior to her admission. In addition to patient's palpitations she did experience chest discomfort. Patient presented to the emergency department in view of the persistent nature of his symptoms. In the ED initial cardiac enzymes came back unremarkable EKG revealed sinus rhythm with multiple PACs. She subsequently appeared to have gone into atrial fibrillation with a rapid ventricular response rate with rates going up over 150 bpm. She was admitted to the telemetry unit she was started on intravenous Cardizem and says that she feels better at this time. She has not had any further chest pain and no dizziness. Past Medical History Allergies/Adverse Reactions: Allergies No Known Allergies Allergy (Verified 07/10/18 09:15) Home Medications: Ambulatory Orders Medication Instructions Recorded Metoprolol Tartrate 6.25 mg PO BID PRN PRN 06/27/15 Tikosyn 0.25 mg PO BID 06/27/15 Warfarin [Coumadin (PBKC)] 2 mg PO DAILY 06/27/15 Amoxicillin [Amoxil] 500 mg PO TID 07/10/18 Past Medical History (Chronic Problems): Chronic Problems Afib (Chronic) Mitral valve disorder (Chronic) Surgical History: - - MVR - *Family History Maternal History Items: Heart Disease Smoking Status: Never smoker Alcohol: None Drugs: None Review of Systems - Review of Systems General: Denies: Fever, Night Sweats, Fatigue HEENT: Denies: Vision Change Cardiovascular: Reports: Chest Discomfort, Palpitations. Denies: Shortness of Breath, Orthopnea, PND, Peripheral Edema, Lightheadedness, Dizziness, Near Syncope, Syncope Respiratory: Denies: Cough, Sputum Production, Hemoptysis Gastrointestinal: Denies: Hematemesis, Hematochezia, Melena Genitourinary: Denies: Dysuria, Hematuria Muscoloskeletal: Denies: Myalgias Skin: Denies: Rash Neurological: Denies: Dizziness Psychiatric: Denies: Anxiety Endocrine: Denies: Unexplained Weight Loss Hematologic/ Lymphatic: Denies: Anemia Subjectve: Pleasant lady in no apparent distress Objective: Vital Signs Temp Pulse Resp BP Pulse Ox 98.5 F 91 19 H 108/69 100 07/10/18 15:00 07/10/18 16:00 07/10/18 16:00 07/10/18 16:00 07/10/18 16:00 Oxygen Flow Rate (L/min) 2 Oxygen Delivery Method Nasal Cannula Weight: 114 lb Body Mass Index (BMI) 22.2 Intake and Output for Last 24 Hours 07/08/18 07/09/18 07/10/18 23:59 23:59 23:59 Intake Total 0 / 0 Balance 0 / 0 General: Awake, Alert, Oriented x 3 HEENT: PERRL, EOMI, Sclera Non Icteric Neck: Supple, Good ROM, No Lymph Node Enlargement Lungs: Clear to auscultation Cardiovascular: Irregular Rhythm, Normal S1, Normal S2, No Murmurs, No Rubs, No Gallops Vascular: No Carotid Bruits, Normal Femoral Pulses, Normal Radial Pulses, Normal Dorsalis Pedal Pulse, Normal Posterior Tibial Pulses Abdomen: Bowel Sounds Present, Soft, Non Tender, No HSM, No Organomegaly Extremities: No Cyanosis, No Clubbing, No edema Musculoskeletal: No Erythema Skin: No Rashes Lymphatic: No Lymph Node Enlargement Neurological: No Focal Motor or Sensory Deficit 07/10/18 09:25: WBC 10.2, RBC 4.84, Hgb 14.7, Hct 45.4, MCV 93.8, MCH 30.4, MCHC 32.4, RDW 13.6, RDW Differential 45.4 H, Plt Count 318, MPV 10.2, Immature Gran % (Auto) 0.200, Neut % (Auto) 76.6 H, Lymph % (Auto) 16.3 L, Storey % (Auto) 6.0, Eos % (Auto) 0.6, Baso % (Auto) 0.3, Absolute Neuts (auto) 7.8 H, Total Counted Not Reportable 07/10/18 09:25: PT 19.2 H, INR 1.6 07/10/18 09:25: Sodium 143, Potassium 4.3, Chloride 105, Carbon Dioxide 27.0, Anion Gap 11, BUN 19 H, Creatinine 1.13 H, Est GFR (MDRD) Af Amer 62, Est GFR (MDRD) Non-Af 51 L, BUN/Creatinine Ratio 16.8, Glucose 100, Calcium 9.8, Troponin I < 0.015 07/10/18 09:25: Magnesium 2.5 07/10/18 13:05: Troponin I < 0.015 07/10/18 15:50: Troponin I < 0.015 Rhythm: EKG: Initial EKG demonstrated atrial fibrillation flutter with rapid ventricular ventricular response rate. EKG from 5:15 PM demonstrates sinus rhythm with a first-degree AV block and a right bundle branch block. ECHO: Preserved left ventricular systolic function and is stable mechanical mitral valve Assessment/Plan 1. Atrial tachyarrhythmia * Patient appears to have a history of paroxysmal atrial fibrillation flutter. My recommendation at this time will be to continue him on the Tikosyn and increase his beta-neeraj with his metoprolol to 25 mg twice a day. Would DC intravenous diltiazem at this time * Continue anticoagulation with Lovenox bridging * Increase Coumadin to obtain therapeutic INR of 2.5-3.5 * 2. Mitral valve replacement * Patient is status post mitral valve replacement which appears to be f unctioning well by echocardiographic exam. * We will continue to follow. * Antibiotic prophylaxis per AHA recommendations. * * Thank you for allowing me to participate in the care of your patient. Please don't hesitate to call if any issues arise
[2018-07-10] MEDS: Enoxaparin 60 MG/0.6 ML Syringe 50 MG SC (17:59)
[2018-07-10] MEDS: Metoprolol Tartrate 25 MG Tablet 12.5 MG PO (20:05)
[2018-07-10] MEDS: Dofetilide 250 MCG Capsule PO (22:33)
[2018-07-11] VITALS (18 sets, daily range): BP systolic 82–112; BP diastolic 48–63; PULSE 64–103; RESP 16–19; TEMP 36.7–36.8; O2SAT 95–98
[2018-07-11] MEDS: 0.9% Normal Saline 1,000 ML 100 ML IV ×2 (00:35→10:33)
[2018-07-11] MEDS: Enoxaparin 60 MG/0.6 ML Syringe 50 MG SC (05:33)
--- NOTE | 2018-07-11 05:55 | EKG12_ITS ---
Test Reason : AM EKG Blood Pressure : / mmHG Vent. Rate : 075 BPM Atrial Rate : 182 BPM P-R Int : 000 ms QRS Dur : 094 ms QT Int : 410 ms P-R-T Axes : 096 -70 078 degrees QTc Int : 457 ms Atrial flutter 2:1 variable block Incomplete right bundle branch block Left anterior fascicular block Abnormal ECG When compared with ECG of 10-JUL-2018 13:55, MANUAL COMPARISON REQUIRED, DATA IS UNCONFIRMED Confirmed by MENDEZ VARMA, XAVI ([id number]), advertising editor ROSE CARLSON ([id number]) on 07/14/2018 9:24:40 AM Referred By: DR MICHEL Confirmed By:XAVI SIMMS MD
[2018-07-11 07:40] LABS: International Normalized Ratio 2.3; Prothrombin Time (Protime)PT. 25.1 SECONDS (11.7-14.9)
[2018-07-11 07:43] LABS: Anion Gap 6 (5-15); BUN 19 mg/dL (7-18); BUN/Creat Ratio 22.6 RATIO (10-20); Calcium,Total 8.4 mg/dL (8.5-10.1); Chloride 113 mmol/L (98-107); Creatinine, Serum 0.84 mg/dL (0.55-1.02); EST Glomerular Filtration Rate 72 mL/min (>60); Est Glom Filt Rate - Afr Amer 87 mL/min (>60); Estimated Creatinine Clearance 47.32 ml/min; Glucose 96 mg/dL (74-106); Potassium 3.9 mmol/L (3.5-5.1); Sodium Level 144 mmol/L (136-145)
[2018-07-11] MEDS: Metoprolol Tartrate 25 MG Tablet 12.5 MG PO ×2 (09:04→21:16)
[2018-07-11] MEDS: Dofetilide 250 MCG Capsule PO ×2 (09:04→21:17)
--- NOTE | 2018-07-11 09:54 | PN_ITS ---
Patient Problems: Active and Suspected Problems Atrial fibrillation with RVR (Acute) Chest discomfort (Acute) Subjective: Patient seen heart rates relatively controlled. She however complains of palpitations with activity. Objective: GENERAL: cooperative HEENT: Atraumatic; EYES; Anicteric, Normal Conjunctiva NECK; supple, normal thyroid, n RESPIRATORY: Diminished to auscultation bilaterally, CARDIOVASCULAR: Irregularly irregular, tachycardic GI: soft, non-tender, normoactive bowel sounds, : No Renal angle tenderness; EXTREMITIES: No edema, no clubbing, no cyanosis. MUSCULOSKELETAL: No Joint Tenderness; NEURO: Awake; no lateralizing signs. SKIN: No Rash PSYCH; Normal affect Vitals/I&O's: Vital Signs Temp Pulse Resp BP Pulse Ox 98.1 F 94 16 112/54 L 97 07/11/18 09:04 07/11/18 09:04 07/11/18 09:04 07/11/18 09:04 07/11/18 09:04 Oxygen Flow Rate (L/min) 2 Oxygen Delivery Method Room Air Weight: 51.71 kg Body Mass Index (BMI) 22.2 Intake and Output for Last 24 Hours 07/09/18 07/10/18 07/11/18 23:59 23:59 23:59 Intake Total 689 / 689 1801 / 1801 Balance 689 / 689 1801 / 1801 Laboratory Results 07/10/18 09:25: PT 19.2 H, INR 1.6 07/10/18 09:25: Sodium 143, Potassium 4.3, Chloride 105, Carbon Dioxide 27.0, Anion Gap 11, BUN 19 H, Creatinine 1.13 H, Estim Creat Clear Calc 42.29, Est GFR (MDRD) Af Amer 62, Est GFR (MDRD) Non-Af 51 L, BUN/Creatinine Ratio 16.8, Glucose 100, Calcium 9.8, Troponin I < 0.015 07/10/18 09:25: Magnesium 2.5 07/10/18 13:05: Troponin I < 0.015 07/10/18 15:50: Troponin I < 0.015 07/11/18 07:10: Sodium 144, Potassium 3.9, Chloride 113 H, Carbon Dioxide 25.0, Anion Gap 6, BUN 19 H, Creatinine 0.84, Estim Creat Clear Calc 47.32, Est GFR (MDRD) Af Amer 87, Est GFR (MDRD) Non-Af 72, BUN/Creatinine Ratio 22.6 H, Glucose 96, Calcium 8.4 L 07/11/18 07:10: PT 25.1 H, INR 2.3 Current Medications Al Hydroxide/Mg Hydroxide (Mylanta Ii) 30 ml PO Q6H PRN PRN PRN Reason: Gastric burning Dofetilide (Tikosyn) 250 mcg PO BID [facility] Last Admin: 07/11/18 09:04 Dose: 250 mcg Enoxaparin Sodium (Lovenox) 50 mg SC Q12@0600,1800 [facility] Last Admin: 07/11/18 05:33 Dose: 50 mg Sodium Chloride () 1,000 mls @ 100 mls/hr IV .Q10H [facility] Stop: 07/11/18 20:49 Last Admin: 07/11/18 00:35 Dose: 100 mls/hr Magnesium Hydroxide (Milk Of Magnesia) 30 ml PO DAILY PRN PRN Reason: Constipation Metoprolol Tartrate (Lopressor (Beta Zohaib)) 12.5 mg PO BID [facility] Last Admin: 07/11/18 09:04 Dose: 12.5 mg Nutritional Formula (Lactose Free) (Ensure Enlive) 120 ml PO 4X/DAY [facility] Last Admin: 07/11/18 09:04 Dose: 120 ml Psyllium Hydrophilic Mucilloid (Metamucil) 1 packet PO DAILY PRN PRN PRN Reason: CONSTIPATION Warfarin Sodium (Coumadin (Pbkc)) 2 mg PO DAILY@1700 [facility] Last Admin: 07/10/18 18:02 Dose: 2 mg Zolpidem Tartrate (Ambien (Generic)) 5 mg PO QHS PRN PRN PRN Reason: INSOMNIA Medical Necessity - Tobacco Use Smoking Status: Never smoker Assessment/Plan All Active Problems Fall (Resolved) Concussion (Resolved) Scalp contusion (Resolved) Atrial fibrillation with RVR (Acute) Chest discomfort (Acute) Patient is a 67-year-old lady with past medical history significant for paroxysmal A. fib presenting with palpitations and chest discomfort 1. Paroxysmal A. fib presented with rapid ventricular response. Patient has been admitted to a monitored bed. Patient is on Tikosyn continued with heart rates been as high as 190 patient was started on Cardizem drip titrated to keep rate less than 100. As part of patient management ordered serial cardiac enzymes 2D echo and consultation placed to cardiology. Patient already on systemic anticoagulation with Coumadin with a subtherapeutic INR 1.6 on admission 2. Chest pain: Patient has been placed on a monitored bed as described above ordered serial cardiac enzymes to rule out [place]. Discussions were held with patient to undergo subsequent evaluation with possible stress test which patient is declining at this point 3. Mitral valve replacement with [facility]. INR was subtherapeutic on admission bridge with Lovenox current monitoring of INR until he becomes therapeutic 2.5-3.5 4. Renal insufficiency managed with IV fluids: Kidney function improved with rehydration 5. DVT prophylaxis patient is on Coumadin no additional measures warranted Active Medications Al Hydroxide/Mg Hydroxide (Mylanta Ii) 30 ml PO Q6H PRN PRN PRN Reason: Gastric burning Dofetilide (Tikosyn) 250 mcg PO BID [facility] Last Admin: 07/11/18 09:04 Dose: 250 mcg Enoxaparin Sodium (Lovenox) 50 mg SC Q12@0600,1800 [facility] Last Admin: 07/11/18 05:33 Dose: 50 mg Sodium Chloride () 1,000 mls @ 100 mls/hr IV .Q10H [facility] Stop: 07/11/18 20:49 Last Admin: 07/11/18 00:35 Dose: 100 mls/hr Magnesium Hydroxide (Milk Of Magnesia) 30 ml PO DAILY PRN PRN Reason: Constipation Metoprolol Tartrate (Lopressor (Beta Zohaib)) 12.5 mg PO BID [facility] Last Admin: 07/11/18 09:04 Dose: 12.5 mg Nutritional Formula (Lactose Free) (Ensure Enlive) 120 ml PO 4X/DAY [facility] Last Admin: 07/11/18 09:04 Dose: 120 ml Psyllium Hydrophilic Mucilloid (Metamucil) 1 packet PO DAILY PRN PRN PRN Reason: CONSTIPATION Warfarin Sodium (Coumadin (Pbkc)) 2 mg PO DAILY@1700 [facility] Last Admin: 07/10/18 18:02 Dose: 2 mg Zolpidem Tartrate (Ambien (Generic)) 5 mg PO QHS PRN PRN PRN Reason: INSOMNIA Code Visit Inpatient E&M: 18864 Subs Hosp L3 OBSV E&M: 98825 Subsequent observation care L3
--- NOTE | 2018-07-11 16:45 | PCM.PN.CARD ---
Subjectve: Patient seen and evaluated. Appears to be mildly short of breath. Still gets tachycardic with activity. Objective: Vital Signs Temp Pulse Resp BP Pulse Ox 98.3 F 94 16 98/60 98 07/11/18 15:04 07/11/18 15:04 07/11/18 15:04 07/11/18 15:04 07/11/18 15:04 Oxygen Flow Rate (L/min) 2 Oxygen Delivery Method Room Air Weight: 114 lb Body Mass Index (BMI) 22.2 Intake and Output for Last 24 Hours 07/09/18 07/10/18 07/11/18 23:59 23:59 23:59 Intake Total 689 / 689 2860 / 2860 Balance 689 / 689 2860 / 2860 General: Awake, Alert, Oriented x 3 HEENT: PERRL, EOMI, Sclera Non Icteric Neck: Supple, Good ROM, No Lymph Node Enlargement Lungs: Clear to auscultation Cardiovascular: Regular Rhythm, Normal S1, Normal S2, No Murmurs, No Rubs, No Gallops, [place] Prosthetic S1 Vascular: No Carotid Bruits, Normal Femoral Pulses, Normal Radial Pulses, Normal Dorsalis Pedal Pulse, Normal Posterior Tibial Pulses Abdomen: Bowel Sounds Present, Soft, Non Tender, No HSM, No Organomegaly Extremities: No Cyanosis, No Clubbing, No edema Musculoskeletal: No Erythema Skin: No Rashes Lymphatic: No Lymph Node Enlargement Neurological: No Focal Motor or Sensory Deficit Psych/Mental Status: Appropriate 07/11/18 07:10: Sodium 144, Potassium 3.9, Chloride 113 H, Carbon Dioxide 25.0, Anion Gap 6, BUN 19 H, Creatinine 0.84, Est GFR (MDRD) Af Amer 87, Est GFR (MDRD) Non-Af 72, BUN/Creatinine Ratio 22.6 H, Glucose 96, Calcium 8.4 L 07/11/18 07:10: PT 25.1 H, INR 2.3 Rhythm: EKG: ECHO: Stress Test: Cardiac Cath: PCI: CT Surgery: Holter monitor: EPS: PPM: CXR: Chest CT Scan: Medical Necessity - Tobacco Use Smoking Status: Never smoker Assessment/Plan 1. Atrial tachyarrhythmia Patient appears to have a history of paroxysmal atrial fibrillation flutter. My recommendation at this time will be to continue her on the Tikosyn and increase his beta-neeraj with his metoprolol to 12.5 mg twice a day. Continue anticoagulation with Lovenox bridging Increase Coumadin to obtain therapeutic INR of 2.5-3.5 It appears that she is still in an atypical atrial flutter with occasional high-grade block. My recommendation is for her to consider an atrial tachyarrhythmia ablation at the [facility]. She will however have to be therapeutic on her INR. She says that this was suggested to her previously. I have asked her to get in touch with the EP physicians at the clinic. This may need to be done as an outpatient. She still has mild shortness of breath and I would recommend discontinuing the IV fluids at this time. 2. Mitral valve replacement Patient is status post mitral valve replacement which appears to be functioning well by echocardiographic exam. We will continue to follow. Antibiotic prophylaxis per AHA recommendations. Thank you for allowing me to participate in the care of your patient. Please don't hesitate to call if any issues arise
--- NOTE | 2018-07-11 16:50 | PN.CARD_ITS ---
Subjectve: Patient seen and evaluated. Appears to be mildly short of breath. Still gets tachycardic with activity. Objective: Vital Signs Temp Pulse Resp BP Pulse Ox 98.3 F 94 16 98/60 98 07/11/18 15:04 07/11/18 15:04 07/11/18 15:04 07/11/18 15:04 07/11/18 15:04 Oxygen Flow Rate (L/min) 2 Oxygen Delivery Method Room Air Weight: 114 lb Body Mass Index (BMI) 22.2 Intake and Output for Last 24 Hours 07/09/18 07/10/18 07/11/18 23:59 23:59 23:59 Intake Total 689 / 689 2860 / 2860 Balance 689 / 689 2860 / 2860 General: Awake, Alert, Oriented x 3 HEENT: PERRL, EOMI, Sclera Non Icteric Neck: Supple, Good ROM, No Lymph Node Enlargement Lungs: Clear to auscultation Cardiovascular: Regular Rhythm, Normal S1, Normal S2, No Murmurs, No Rubs, No Gallops, [place] Prosthetic S1 Vascular: No Carotid Bruits, Normal Femoral Pulses, Normal Radial Pulses, Normal Dorsalis Pedal Pulse, Normal Posterior Tibial Pulses Abdomen: Bowel Sounds Present, Soft, Non Tender, No HSM, No Organomegaly Extremities: No Cyanosis, No Clubbing, No edema Musculoskeletal: No Erythema Skin: No Rashes Lymphatic: No Lymph Node Enlargement Neurological: No Focal Motor or Sensory Deficit Psych/Mental Status: Appropriate 07/11/18 07:10: Sodium 144, Potassium 3.9, Chloride 113 H, Carbon Dioxide 25.0, Anion Gap 6, BUN 19 H, Creatinine 0.84, Est GFR (MDRD) Af Amer 87, Est GFR (MDRD) Non-Af 72, BUN/Creatinine Ratio 22.6 H, Glucose 96, Calcium 8.4 L 07/11/18 07:10: PT 25.1 H, INR 2.3 Rhythm: EKG: ECHO: Stress Test: Cardiac Cath: PCI: CT Surgery: Holter monitor: EPS: PPM: CXR: Chest CT Scan: Medical Necessity - Tobacco Use Smoking Status: Never smoker Assessment/Plan 1. Atrial tachyarrhythmia * Patient appears to have a history of paroxysmal atrial fibrillation flutter. My recommendation at this time will be to continue her on the Tikosyn and increase his beta-neeraj with his metoprolol to 12.5 mg twice a day. * Continue anticoagulation with Lovenox bridging * Increase Coumadin to obtain therapeutic INR of 2.5-3.5 * It appears that she is still in an atypical atrial flutter with occasional high-grade block. My recommendation is for her to consider an atrial tachyarrhythmia ablation at the [facility]. She will however have to be therapeutic on her INR. She says that this was suggested to her previously. I have asked her to get in touch with the EP physicians at the clinic. This may need to be done as an outpatient. * She still has mild shortness of breath and I would recommend discontinuing the IV fluids at this time. 2. Mitral valve replacement * Patient is status post mitral valve replacement which appears to be functioning well by echocardiographic exam. * We will continue to follow. * Antibiotic prophylaxis per AHA recommendations. * * Thank you for allowing me to participate in the care of your patient. Please don't hesitate to call if any issues arise
[2018-07-11] MEDS: Furosemide 40 MG/4 ML Vial IV (18:07)
[2018-07-12] VITALS (14 sets, daily range): BP systolic 95–127; BP diastolic 58–77; PULSE 83–180; RESP 14–18; TEMP 36.4–36.7; O2SAT 94–98
--- NOTE | 2018-07-12 00:19 | EKG12_ITS ---
Test Reason : RHYTHM CHANGE Blood Pressure : / mmHG Vent. Rate : 065 BPM Atrial Rate : 182 BPM P-R Int : 000 ms QRS Dur : 094 ms QT Int : 388 ms P-R-T Axes : 093 -72 075 degrees QTc Int : 403 ms Atrial flutter with variable A-V block Pulmonary disease pattern Incomplete right bundle branch block Left anterior fascicular block Abnormal ECG When compared with ECG of 11-JUL-2018 05:49, MANUAL COMPARISON REQUIRED, DATA IS UNCONFIRMED Confirmed by MENDEZ VARMA, XAVI ([id number]), news video editor ROSE CARLSON ([id number]) on 07/14/2018 9:21:41 AM Referred By: CHRISTY Confirmed By:XAVI SIMMS MD
[2018-07-12 08:59] LABS: Hematocrit 42.6 % (37-47); Hemoglobin 13.6 g/dl (12.0-15.0); Mean Corp Hgb Conc 31.9 g/gl (32-36); Mean Corpuscular Hgb 30.4 pg (27.0-32.0); Mean Corpuscular Volume 95.1 fL (81-99); Mean Platelet Vol. 10.1 fl (6.2-12.0); Platelet Count 267 K/mm3 (150-450); RBC Distribution Width CV 13.8 % (11.6-14.6); RBC Distribution Width SD 47.6 fl (35.1-43.9); Red Blood Count 4.48 M/mm3 (4.2-5.4); White Blood Count 6.2 K/mm3 (4.4-11.0)
[2018-07-12 09:00] LABS: Scan Indicated on CBC? Y/N NO
[2018-07-12 09:10] LABS: Anion Gap 10 (5-15); BUN 21 mg/dL (7-18); BUN/Creat Ratio 19.1 RATIO (10-20); Calcium,Total 9.5 mg/dL (8.5-10.1); Chloride 106 mmol/L (98-107); EST Glomerular Filtration Rate 53 mL/min (>60); Est Glom Filt Rate - Afr Amer 64 mL/min (>60); Estimated Creatinine Clearance 36.14 ml/min; Glucose 192 mg/dL (74-106); Magnesium 2.3 mg/dL (1.6-2.6); Potassium 3.7 mmol/L (3.5-5.1); Sodium Level 145 mmol/L (136-145)
[2018-07-12 09:11] LABS: International Normalized Ratio 2.2; Prothrombin Time (Protime)PT. 24.4 SECONDS (11.7-14.9)
[2018-07-12] MEDS: Dofetilide 250 MCG Capsule PO ×2 (09:27→21:27)
[2018-07-12] MEDS: Metoprolol Tartrate 25 MG Tablet 12.5 MG PO ×2 (09:29→21:26)
--- NOTE | 2018-07-12 10:03 | DCINST_ITS ---
- Discharge Diagnoses Current Active Problems: Current Active and Chronic Problems Atrial fibrillation with RVR (Acute) Chest discomfort (Acute) You will use the following diet at home:: No restrictions Allergies/Adverse Reactions: Allergies No Known Allergies Allergy (Verified 07/10/18 09:15) Medications to take at Discharge Tikosyn 0.25 mg PO BID 06/27/15 Warfarin [Coumadin] 2 mg PO DAILY 06/27/15 Amoxicillin [Amoxil] 500 mg PO TID 07/10/18 Metoprolol Tartrate [Lopressor (beta neeraj)] 12.5 mg PO BID tablet 07/12/18 Primary Care Physician: Lenora Louise MD [Primary Care Provider] - Test Results: Test results from this visit will be discussed in further detail at your follow- up appointment, if applicable. Proposed Discharge Date: 07/12/18
--- NOTE | 2018-07-12 10:04 | PCM.PN.HOSP ---
Patient Problems: Active and Suspected Problems Atrial fibrillation with RVR (Acute) Chest discomfort (Acute) Subjective: Seen heart rate still remains uncontrolled. Did discuss with cardiology plan is for patient to be transferred to [facility] for consideration for possible ablation Objective: GENERAL: cooperative HEENT: Atraumatic; EYES; Anicteric, Normal Conjunctiva NECK; supple, normal thyroid, n RESPIRATORY: Diminished to auscultation bilaterally, CARDIOVASCULAR: Irregularly irregular, tachycardic GI: soft, non-tender, normoactive bowel sounds, : No Renal angle tenderness; EXTREMITIES: No edema, no clubbing, no cyanosis. MUSCULOSKELETAL: No Joint Tenderness; NEURO: Awake; no lateralizing signs. SKIN: No Rash PSYCH; Normal affect Vitals/I&O's: Vital Signs Temp Pulse Resp BP Pulse Ox 97.6 F L 112 H 18 127/62 H 98 07/12/18 09:10 07/12/18 09:29 07/12/18 09:10 07/12/18 09:10 07/12/18 09:10 Oxygen Flow Rate (L/min) 2 Oxygen Delivery Method Nasal Cannula Weight: 51.71 kg Body Mass Index (BMI) 22.2 Intake and Output for Last 24 Hours 07/10/18 07/11/18 07/12/18 23:59 23:59 23:59 Intake Total 689 / 689 4149 / 4149 Balance 689 / 689 4149 / 4149 Laboratory Results 07/12/18 08:52: WBC 6.2, RBC 4.48, Hgb 13.6, Hct 42.6, MCV 95.1, MCH 30.4, MCHC 31.9 L, RDW 13.8, RDW Differential 47.6 H, Plt Count 267, MPV 10.1 07/12/18 08:52: PT 24.4 H, INR 2.2 07/12/18 08:52: Sodium 145, Potassium 3.7, Chloride 106, Carbon Dioxide 29.0, Anion Gap 10, BUN 21 H, Creatinine 1.10 H, Estim Creat Clear Calc 36.14, Est GFR (MDRD) Af Amer 64, Est GFR (MDRD) Non-Af 53 L, BUN/Creatinine Ratio 19.1, Glucose 192 H, Calcium 9.5, Magnesium 2.3 Current Medications Al Hydroxide/Mg Hydroxide (Mylanta Ii) 30 ml PO Q6H PRN PRN PRN Reason: Gastric burning Dofetilide (Tikosyn) 250 mcg PO BID [facility] Last Admin: 07/12/18 09:27 Dose: 250 mcg Sodium Chloride () 250 mls @ 15 mls/hr IV .[id number] PRN PRN Reason: SALINE FLUSH Sodium Chloride () 500 mls @ 15 mls/hr IV .[id number] PRN PRN Reason: SALINE FLUSH Magnesium Hydroxide (Milk Of Magnesia) 30 ml PO DAILY PRN PRN Reason: Constipation Metoprolol Tartrate (Lopressor (Beta Zohaib)) 12.5 mg PO BID [facility] Last Admin: 07/12/18 09:29 Dose: 12.5 mg Nutritional Formula (Lactose Free) (Ensure Enlive) 120 ml PO 4X/DAY [facility] Last Admin: 07/12/18 09:26 Dose: 120 ml Psyllium Hydrophilic Mucilloid (Metamucil) 1 packet PO DAILY PRN PRN PRN Reason: CONSTIPATION Sodium Chloride () 5 - 15 ml IV UD PRN PRN Reason: SALINE FLUSH Warfarin Sodium (Coumadin (Pbkc)) 2 mg PO DAILY@1700 [facility] Last Admin: 07/11/18 17:47 Dose: 2 mg Zolpidem Tartrate (Ambien (Generic)) 5 mg PO QHS PRN PRN PRN Reason: INSOMNIA Medical Necessity - Tobacco Use Smoking Status: Never smoker Assessment/Plan All Active Problems Fall (Resolved) Concussion (Resolved) Scalp contusion (Resolved) Atrial fibrillation with RVR (Acute) Chest discomfort (Acute) Patient is a 67-year-old lady with past medical history significant for paroxysmal A. fib presenting with palpitations and chest discomfort 1. Paroxysmal A. fib presented with rapid ventricular response. Patient has been admitted to a monitored bed. Patient is on Tikosyn continued with heart rates been as high as 190 patient was started on Cardizem drip titrated to keep rate less than 100. As part of patient management ordered serial cardiac enzymes 2D echo and consultation placed to cardiology. Patient already on systemic anticoagulation with Coumadin with a subtherapeutic INR 1.6 on admission 2. Chest pain: Patient has been placed on a monitored bed as described above ordered serial cardiac enzymes to rule out [place]. Discussions were held with patient to undergo subsequent evaluation with possible stress test which patient is declining at this point 3. Mitral valve replacement with [facility]. INR was subtherapeutic on admission bridge with Lovenox current monitoring of INR until he becomes therapeutic 2.5-3.5 4. Renal insufficiency managed with IV fluids: Kidney function improved with rehydration 5. DVT prophylaxis patient is on Coumadin no additional measures warranted Active Medications Al Hydroxide/Mg Hydroxide (Mylanta Ii) 30 ml PO Q6H PRN PRN PRN Reason: Gastric burning Dofetilide (Tikosyn) 250 mcg PO BID [facility] Last Admin: 07/11/18 09:04 Dose: 250 mcg Enoxaparin Sodium (Lovenox) 50 mg SC Q12@0600,1800 [facility] Last Admin: 07/11/18 05:33 Dose: 50 mg Sodium Chloride () 1,000 mls @ 100 mls/hr IV .Q10H [facility] Stop: 07/11/18 20:49 Last Admin: 07/11/18 00:35 Dose: 100 mls/hr Magnesium Hydroxide (Milk Of Magnesia) 30 ml PO DAILY PRN PRN Reason: Constipation Metoprolol Tartrate (Lopressor (Beta Zohaib)) 12.5 mg PO BID [facility] Last Admin: 07/11/18 09:04 Dose: 12.5 mg Nutritional Formula (Lactose Free) (Ensure Enlive) 120 ml PO 4X/DAY [facility] Last Admin: 07/11/18 09:04 Dose: 120 ml Psyllium Hydrophilic Mucilloid (Metamucil) 1 packet PO DAILY PRN PRN PRN Reason: CONSTIPATION Warfarin Sodium (Coumadin (Pbkc)) 2 mg PO DAILY@1700 [facility] Last Admin: 07/10/18 18:02 Dose: 2 mg Zolpidem Tartrate (Ambien (Generic)) 5 mg PO QHS PRN PRN PRN Reason: INSOMNIA Code Visit Inpatient E&M: 12333 Subs Hosp L2
--- NOTE | 2018-07-12 10:04 | PCM.DC.SUM ---
Discharge Date and Diagnosis - Problem List Patient Problems: Active and Suspected Problems Atrial fibrillation with RVR (Acute) Chest discomfort (Acute) Date of Admission: 07/10/18 Date of Discharge: 07/12/18 - Primary Discharge Diagnosis Active and Suspected Problems Atrial fibrillation with RVR (Acute) Chest discomfort (Acute) - Secondary Discharge Diagnosis Chronic Problems Afib (Chronic) Mitral valve disorder (Chronic) Hospital Course and Treatment Summary of Care Provided: Patient is a 67-year-old lady with past medical history significant for paroxysmal A. fib presenting with palpitations and chest discomfort 1. Paroxysmal A. fib presented with rapid ventricular response. Patient has been admitted to a monitored bed. Patient is on Tikosyn continued with heart rates been as high as 190 patient was started on Cardizem drip titrated to keep rate less than 100. As part of patient management ordered serial cardiac enzymes 2D echo and consultation placed to cardiology. Patient already on systemic anticoagulation with Coumadin with a subtherapeutic INR 1.6 on admission patient was bridged with Lovenox. With patient heart rate remaining persistently elevated discussions were held with cardiology we made a decision to have patient transferred to [facility] for consideration for possible ablation. 2. Chest pain: Patient has been placed on a monitored bed as described above ordered serial cardiac enzymes to rule out [place]. Discussions were held with patient to undergo subsequent evaluation with possible stress test which patient declined 3. Mitral valve replacement with [facility]. INR was subtherapeutic on admission bridge with Lovenox current monitoring of INR until he becomes therapeutic 2.5-3.5 4. Renal insufficiency managed with IV fluids: Kidney function improved with rehydration 5. DVT prophylaxis patient is on Coumadin no additional measures warranted Patient Problems: Active and Suspected Problems Atrial fibrillation with RVR (Acute) Chest discomfort (Acute) Objective: GENERAL: cooperative HEENT: Atraumatic; EYES; Anicteric, Normal Conjunctiva NECK; supple, normal thyroid, n RESPIRATORY: Diminished to auscultation bilaterally, CARDIOVASCULAR: Irregularly irregular, tachycardic GI: soft, non-tender, normoactive bowel sounds, : No Renal angle tenderness; EXTREMITIES: No edema, no clubbing, no cyanosis. MUSCULOSKELETAL: No Joint Tenderness; NEURO: Awake; no lateralizing signs. SKIN: No Rash PSYCH; Normal affect - Physical Exam Vital Signs Temp Pulse Resp BP Pulse Ox 97.6 F L 112 H 18 127/62 H 98 07/12/18 09:10 07/12/18 09:29 07/12/18 09:10 07/12/18 09:10 07/12/18 09:10 Oxygen Flow Rate (L/min) 2 Oxygen Delivery Method Nasal Cannula Weight: 51.71 kg Body Mass Index (BMI) 22.2 Intake and Output for Last 24 Hours 07/10/18 07/11/18 07/12/18 23:59 23:59 23:59 Intake Total 689 / 689 4149 / 4149 Balance 689 / 689 4149 / 4149 Laboratory Tests Past 24 Hrs 07/12/18 07/12/18 07/12/18 08:52 08:52 08:52 WBC 6.2 RBC 4.48 Hgb 13.6 Hct 42.6 MCV 95.1 MCH 30.4 MCHC 31.9 L RDW 13.8 RDW Differential 47.6 H Plt Count 267 MPV 10.1 PT 24.4 H INR 2.2 Sodium 145 Potassium 3.7 Chloride 106 Carbon Dioxide 29.0 Anion Gap 10 BUN 21 H Creatinine 1.10 H Estim Creat Clear Calc 36.14 Est GFR (MDRD) Af Amer 64 Est GFR (MDRD) Non-Af 53 L BUN/Creatinine Ratio 19.1 Glucose 192 H Calcium 9.5 Magnesium 2.3 Discharge Diet: No Restrictions Home Medications: Medications to take at Discharge Tikosyn 0.25 mg PO BID 06/27/15 Warfarin [Coumadin] 2 mg PO DAILY 06/27/15 Amoxicillin [Amoxil] 500 mg PO TID 07/10/18 Metoprolol Tartrate [Lopressor (beta neeraj)] 12.5 mg PO BID tablet 07/12/18 Primary Care Physician: Lenora Louise MD [Primary Care Provider] - Disposition: [facility] Minutes spent on discharge:: 45 Patient Condition:: Good Medical Necessity - Tobacco Use Smoking Status: Never smoker Meaningful Use Info Meaningful Use Diagnoses (Choose all that apply): None applicable Code Visit Inpatient E&M: 11543 Disch Hosp
--- NOTE | 2018-07-12 23:07 | NURSING ---
This nurse called report to summer at [facility] at 2300.
== END 2018-07-13 00:15 | disposition short-term general hospital (02) ==
LOC: ED 09:49 → PCU 11:23
PROVIDERS: Admitting Provider Internal Medicine; Emergency Provider Emergency Medicine; Family Provider Internal Medicine; PCP Internal Medicine; Visit Provider Internal Medicine
DX: I48.0 Paroxysmal atrial fibrillation (principal); R07.89 Other chest pain; N28.9 Disorder of kidney and ureter, unspecified; Z95.2 Presence of prosthetic heart valve; Z79.01 Long term (current) use of anticoagulants; Z79.899 Other long term (current) drug therapy
CPT/HCPCS: 36415; 71045; 80048; 83735; 84484; 85025; 85027; 85610; 93005; 93306; 96361; 96365; 96366; 96372; 96375; 97802; 99218; 99251; 99285; J7030; A4216; G0378; G0463; J1940

== ENCOUNTER 2018-10-24 17:41 | Emergency (ER) | payer OTHER, SELFPAY ==
[2018-07-10 11:31] VITALS: BMI 22.2
[2018-10-24 17:43] VITALS: BP 136/75; PULSE 87; RESP 18; TEMP 36.6; O2SAT 98; BMI 22.8
--- NOTE | 2018-10-24 17:52 | US_ITS ---
STUDY: VENOUS DOPPLER ULTRASOUND - RIGHT LOWER EXTREMITY REASON FOR EXAM: Female, 67 years old. Swelling bruise TECHNIQUE: Ultrasound evaluation of the deep vein system to include ware-scale imaging and compression was performed. Ware-scale imaging and Doppler sonographic evaluation, including duplex spectral analysis and qualitative color flow sonography, was performed. COMPARISON: None. FINDINGS: Common Femoral Vein: Normal compression, spontaneity and augmentation. Normal color Doppler. Femoral Proximal: Normal compression. Femoral Middle: Normal compression, spontaneity and augmentation. Normal color Doppler. Femoral Distal: Normal compression. Popliteal Vein: Normal compression, spontaneity and augmentation. Normal color Doppler. Posterior Tibial Vein: Normal compression. Peroneal Vein: Normal compression. The region of the Edward is no visualized mass or significant edema. US/Venous Duplex Imag/Limited/Uni IMPRESSION: No evidence of deep venous thrombosis. In the area of concern there is no visualized underlying edema or hematoma. Electronically Signed: Sarah Guzmán MD at 18:56 EDT Tel , Service support ,
--- NOTE | 2018-10-24 19:14 | ED.VISSUMM ---
- ER Visit Summary Date of Service: 10/24/18 Chief Complaint: Right groin and medial hamstring bruising History of Present Illness: The patient is a 67 F 2 weeks ago had bilateral femoral cardiac catheterizations for cardiac ablation for atrial flutter. She is chronically on Coumadin secondary to a prosthetic heart valve. Patient developed bruising on her right thigh last Tuesday. It has not gotten worse. She went to the urgent care today at the [facility] and she is here for ultrasound of her leg to rule out DVT. She denies pain. She denies chest pain or shortness of breath. Her only on Coumadin her last INR was a week ago was 3.7. She denies any other complaints. No melena or hematuria. Physical Examination: Well-appearing female vital signs are stable afebrile. HEENT exam unremarkable. Neck nontender. Lungs clear to auscultation bilaterally. Heart regular rhythm rate about 90 with a 3-4 over 6 stock ejection murmur due to her prosthetic valve. Abdomen soft and nontender normal bowel sounds no peritoneal signs. No femoral arterial tenderness. Positive femoral pulse. No signs of pseudoaneurysm or infection. Her right medial thigh there is mild to moderate bruising. There is no tenderness. No compartment syndrome. Distally her right calf has no tenderness or edema. Her right foot is neurovascular intact with a normal DP pulse. 5 out of 5 motor strength. Normal range of motion. This appears to be normal postop bruising after cardiac catheterization or this procedure. Other extremities are unremarkable. Neurologically she is awake alert. Test Results: PT/INR Noninvasive study of her right leg was done prior to me evaluate the patient shows no signs of DVT. Also no edema or hematoma. This is read by the radiologist. Emergency Department Course and Treatment: INR be obtained. Patient wants to go home. I will call her if the results are too high. Treatment Plan: Continue her current medications. Follow-up with your doctor as needed. Disposition: Discharge Impression: Normal post cardiac catheterization right thigh hematoma Anticoagulated on Coumadin History of prosthetic valve Status post cardiac ablation for atrial flutter This note was generated with [employer] software. It may contain incorrect words, spelling, and punctuation that were not noted in review of the chart prior to signing ED Disposition - Plan for ED Patient: Referrals: Lenora Louise MD [Primary Care Provider] -
--- NOTE | 2018-10-24 19:17 | ED.DCSUM_ITS ---
- ER Visit Summary Date of Service: 10/24/18 Chief Complaint: Right groin and medial hamstring bruising History of Present Illness: The patient is a 67 F 2 weeks ago had bilateral femoral cardiac catheterizations for cardiac ablation for atrial flutter. She is chronically on Coumadin secondary to a prosthetic heart valve. Patient developed bruising on her right thigh last Tuesday. It has not gotten worse. She went to the urgent care today at the [facility] and she is here for ultrasound of her leg to rule out DVT. She denies pain. She denies chest pain or shortness of breath. Her only on Coumadin her last INR was a week ago was 3.7. She denies any other complaints. No melena or hematuria. Physical Examination: Well-appearing female vital signs are stable afebrile. HEENT exam unremarkable. Neck nontender. Lungs clear to auscultation bilaterally. Heart regular rhythm rate about 90 with a 3-4 over 6 stock ejection murmur due to her prosthetic valve. Abdomen soft and nontender normal bowel sounds no peritoneal signs. No femoral arterial tenderness. Positive femoral pulse. No signs of pseudoaneurysm or infection. Her right medial thigh there is mild to moderate bruising. There is no tenderness. No compartment syndrome. Distally her right calf has no tenderness or edema. Her right foot is neurovascular intact with a normal DP pulse. 5 out of 5 motor strength. Normal range of motion. This appears to be normal postop bruising after cardiac catheterization or this procedure. Other extremities are unremarkable. Neurologically she is awake alert. Test Results: PT/INR Noninvasive study of her right leg was done prior to me evaluate the patient shows no signs of DVT. Also no edema or hematoma. This is read by the radiologist. Emergency Department Course and Treatment: INR be obtained. Patient wants to go home. I will call her if the results are too high. Treatment Plan: Continue her current medications. Follow-up with your doctor as needed. Disposition: Discharge Impression: Normal post cardiac catheterization right thigh hematoma Anticoagulated on Coumadin History of prosthetic valve Status post cardiac ablation for atrial flutter This note was generated with Pro[employer] software. It may contain incorrect words, spelling, and punctuation that were not noted in review of the chart prior to signing ED Disposition - Plan for ED Patient: Referrals: Lenora Louise MD [Primary Care Provider] -
--- NOTE | 2018-10-24 19:17 | ED.DEP ---
ED Disposition - Plan for ED Patient: Disposition: Home or Assisted Living Referrals: Lenora Louise MD [Primary Care Provider] - As Needed Additional Instructions: This is normal bruising after having the type of procedure you had done her after having a heart catheterization. Continue your current medications. This should progressively get better but may take weeks to resolve.
[2018-10-24 19:32] VITALS: BP 132/72; PULSE 86; RESP 16; O2SAT 98
[2018-10-24 20:02] LABS: International Normalized Ratio 3.2; Prothrombin Time (Protime)PT. 33.1 SECONDS (11.7-14.9)
== END 2018-10-24 19:36 | disposition home or self-care (01) ==
PROVIDERS: Emergency Provider Emergency Medicine; Family Provider Internal Medicine; PCP Internal Medicine
DX: S70.11XA Contusion of right thigh, initial encounter (principal); Z98.890 Other specified postprocedural states; Z95.2 Presence of prosthetic heart valve; Z79.01 Long term (current) use of anticoagulants; X58.XXXA Exposure to other specified factors, initial encounter; Y93.89 Activity, other specified; Y92.89 Other specified places as the place of occurrence of the external cause; Y99.8 Other external cause status
CPT/HCPCS: 85610; 93971; 99282

== ENCOUNTER 2022-05-18 11:42 | Emergency (ER) | payer OTHER, SELFPAY ==
[2022-05-18 11:42] VITALS: BP 134/72; PULSE 89; RESP 16; TEMP 36.4; O2SAT 100; BMI 24.0
--- NOTE | 2022-05-18 11:55 | EKG12_ITS ---
Test Reason : SOB Blood Pressure : / mmHG Vent. Rate : 080 BPM Atrial Rate : 080 BPM P-R Int : 192 ms QRS Dur : 092 ms QT Int : 358 ms P-R-T Axes : 079 -61 073 degrees QTc Int : 412 ms Sinus rhythm with Premature atrial complexes Incomplete right bundle branch block Left anterior fascicular block Abnormal ECG Confirmed by MENDEZ VARMA, XAVI ([id number]), editorial cartoonist TONA JUNIOR ([id number]) on 05/19/2022 11:08:49 AM Referred By: Confirmed By:XAVI SIMMS MD
--- NOTE | 2022-05-18 11:56 | ED.VIS.DYS ---
HPI History of Present Illness Chief Complaint: Shortness of Breath Detail of Chief Complaint: Shortness of breath that started initially a month ago Informant: patient Narrative Narrative: Patient presents with shortness of breath that started a month ago. Patient complains of exertional dyspnea. She describes some chest discomfort underneath the left ribs that started 2 days ago with deep breath. Patient last had her INR checked yesterday and it was elevated 4.7. She is on Coumadin for history of a artificial mitral valve. Patient had the mitral valve replacement over 40 years ago. Patient came into triage just requesting a chest x-ray. She denies recent fever or cough. She denies recent illness. [facility] Medical History (Updated 05/18/22 @ 13:[address] Cynthia Heck DO) A-fib Home Medications Tikosyn 0.25 mg PO BID 06/27/15 [History Last Taken 07/10/18] warfarin 2 mg tablet (Jantoven) 2 mg PO MOTUTHFRSA 06/27/15 [History Last Taken 07/09/18] metoprolol tartrate 25 mg tablet 12.5 mg PO BID 07/12/18 [Rx Last Taken Unknown] warfarin 3 mg tablet (Jantoven) 3 mg PO SUWE 10/24/18 [History Last Taken Unknown] doxycycline monohydrate 100 mg capsule 100 mg PO BID #20 CAPSULES 05/18/22 [Rx Last Taken Unknown] Allergy/AdvReac Type Severity Reaction Status Date / Time No Known Allergies Allergy Verified 05/18/22 11:44 Surgical History (Updated 05/18/22 @ 12:13 by Martina Oden RN) H/O mitral valve replacement with mechanical valve Social History Smoking Status: Never smoker ROS ROS ED Review of Systems ROS Unobtainable: other Constitutional Constitutional ED: Reports lethargy; Denies chills, fever(s), sweats or weight loss Eyes Eyes: Denies blurry vision, change in vision or diplopia ENT ENT ED: Denies rhinorrhea or sore throat Cardiovascular Cardiovascular: Reports chest pain; Denies orthopnea or racing heartbeat Respiratory/Chest Respiratory/Chest: Reports cough, dyspnea and dyspnea on exertion; Denies orthopnea or sputum Gastrointestinal Gastrointestinal: Denies abdominal pain, diarrhea, nausea or vomiting Genitourinary Genitourinary ED: Denies dysuria, hematuria or urinary frequency Musculoskeletal Musculoskeletal: Denies arthralgias, back pain, myalgias or neck pain Integumentary Denies abscess, Abrasions or rash Neurologic Neurologic: Denies headache(s) or weakness Psychiatric Psychiatric: Denies anxiety, depression or suicidal thoughts Endocrine Endocrinology: Denies polydipsia, polyphagia or polyuria Hematologic/Lymphatic Hematologic/Lymphatic: Denies easy bleeding, easy bruising or lymphadenopathy Allergic/Immunologic Allergic/Immunologic ED: Denies mouth swelling, tongue swelling or urticaria EXAM Physical Exam Const Vital Signs: 05/18/22 11:42 05/18/22 12:12 05/18/22 12:57 Temperature 97.6 F L Temperature Source Temporal Pulse Rate 89 85 Respiratory Rate 16 18 Respiratory Depth Normal Respiratory Pattern Normal Blood Pressure 134/72 H 131/76 H Blood Pressure Mean 92 94 Pulse Ox 100 98 Oxygen Delivery Method Room Air Room Air Room Air Positive well nourished and well developed General Appearance ED: well developed and NAD HEENT Reports TM's clear and moist mucous membranes normocephalic and atraumatic; Negative for trauma or tenderness Tympanic Membrane ED: Yes TM's clear Eyes PERRL and EOMs intact bilaterally General Eye ED: Negative for pale conjunctiva or scleral icterus Neck no lymphadenopathy, supple and no JVD General: Negative for tenderness Chest Wall inspection of chest normal and palpation of chest normal Chest: Negative for tenderness Resp clear to auscultation bilaterally Resp Narrative: Patient with few Rales in the right base. No accessory muscle use or retractions. No conversational dyspnea. Effort and Inspection: Negative for respiratory distress or pain with movement Auscultation: Negative for rhonchi, wheezes or diminished lung sounds Cardio regular rate, regular rhythm, S1 normal heart sound, S2 normal heart sound and no murmurs Peripheral Pulses: pulses 2+ throughout GI normal to inspection, nondistended, normoactive bowel sounds, soft to palpation, non-tender, non-distended and no masses Back/Spine no CVA tenderness and no thoracic nor lumbar tenderness Extremity normal to inspection Extremity Narrative: No edema noted to the lower extremities. General Extremety ED: Negative for edema General Extremity: Negative for edema Neuro oriented x3, CN's II-XII intact bilaterally, no sensory deficits noted and gait normal Sensorium / Orientation: awake, alert, oriented to person, oriented to place and oriented to time Motor Exam: strength 5/5 throughout and strength abnormal Psych mental status grossly normal Skin no rashes or lesions noted and no wounds MDM MDM MDM Narrative Medical decision making narrative: Established on arrival. 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 EKG obtained shows sinus rhythm with a ventricular rate of 14 bpm with incomplete right bundle branch block and when compared with prior EKG no changes noted. CBC with differential is unremarkable. Chemistries unremarkable. D-dimer was normal. Troponin was 9. BNP was in the 130s. Patient does not have classic symptoms of pneumonia and that she is not had a fever or cough. Her chest discomfort on the left side. Patient tells me she has had atypical pneumonia before where she just had dyspnea. At this point I cannot find another etiology for her dyspnea. We will start her on doxycycline and advised to follow-up with her primary care physician within next 3 to 5 days. 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 Patient states her last echo was about a year and a half ago and everything looked well at that time. Patient advised to return if chest pain, increasing shortness of breath, syncope, or condition worsen anyway. Lab Data Attestation: I reviewed the patient's lab results. Labs: Laboratory Results - last 24 hr 05/18/22 05/18/22 05/18/22 12:00 12:00 12:00 WBC 8.8 RBC 3.85 L Hgb 11.9 L Hct 36.0 L MCV 93.5 MCH 30.9 MCHC 33.1 RDW Std Deviation 48.2 H RDW Coeff of Adela 14.1 Plt Count 282 MPV 10.3 Immature Gran % (Auto) 0.300 Neut % (Auto) 66.5 Lymph % (Auto) 20.6 Payette % (Auto) 10.0 Eos % (Auto) 2.0 Baso % (Auto) 0.6 Absolute Neuts (auto) 5.9 Absolute Lymphs (auto) 1.82 Nucleated RBC % 0 D-Dimer Quant (PE/DVT) 0.41 Sodium 141 Potassium 3.9 Chloride 106 Carbon Dioxide 32.0 Anion Gap 3 L BUN 14 Creatinine 0.97 Estim Creat Clear Calc 38.76 Est GFR (MDRD) Af Amer 73 Est GFR (MDRD) Non-Af 61 BUN/Creatinine Ratio 14.5 Glucose 99 Calcium 9.4 Troponin I High Sens 9 B-Natriuretic Peptide 12/20/22 12:00 WBC RBC Hgb Hct MCV MCH MCHC RDW Std Deviation RDW Coeff of Adela Plt Count MPV Immature Gran % (Auto) Neut % (Auto) Lymph % (Auto) Payette % (Auto) Eos % (Auto) Baso % (Auto) Absolute Neuts (auto) Absolute Lymphs (auto) Nucleated RBC % D-Dimer Quant (PE/DVT) Sodium Potassium Chloride Carbon Dioxide Anion Gap BUN Creatinine Estim Creat Clear Calc Est GFR (MDRD) Af Amer Est GFR (MDRD) Non-Af BUN/Creatinine Ratio Glucose Calcium Troponin I High Sens B-Natriuretic Peptide 131.2 H Radiography Diagnostic Testing: Clinical Impression(s) from Imaging Studies Chest X-Ray 05/18/22 12:40 IMPRESSION: New infiltrate in the right middle lobe. Stable pleural parenchymal changes at the left lung base suggestive of scarring. Electronically Signed: Napoleon Gonsalez MD at 13:02 EST , 1 view chest x-ray obtained interpreted by myself as increased markings right hilum. Radiology felt it was a right middle lobe infiltrate. EKG Initial EKG: Attestation: I personally reviewed and interpreted this EKG as follows: Comments: Sinus rhythm with a ventricular rate of 80 bpm with incomplete right bundle branch block and occasional PACs. Prior EKG tracings: available for review Prior: Unchanged Discharge Plan Triage Chief Complaint: Shortness of Breath ED Provider: Cynthia Heck Dx/Rx/DC Orders Clinical Impression: Acute dyspnea, Pneumonia Instructions: ED Dyspnea, ED Pneumonia (Adult) Prescriptions: New doxycycline monohydrate 100 mg capsule 100 mg PO BID Qty: 20 0RF No Action warfarin [Jantoven] 2 MG tablet 2 mg PO MOTUTHFRSA Tikosyn 0.25 mg PO BID metoprolol tartrate 25 MG tablet 12.5 mg PO BID 0RF warfarin [Jantoven] 3 MG tablet 3 mg PO SUWE Primary Care Provider: Lenora Louise Referrals: Lenora Louise MD [Primary Care Provider] - 3-5 Days Disposition Disposition: Home, Self Care
[2022-05-18 12:12] VITALS: O2SAT 96
[2022-05-18 12:19] LABS: Absolute Lymphocyte Count 1.82 X10^3/uL (0.83-4.51); Absolute Neutrophil Count 5.9 X10^3/uL (2.0-7.7); Basophil# 0.05 X10^3/uL; Basophil% 0.6 % (0-1); Eosinophil# 0.18 X10^3/uL; Hemoglobin 11.9 g/dL (12.0-15.0); Lymphocyte # 1.82 X10^3/ul (0.83-4.51); Lymphocyte % 20.6 % (19-41); Mean Corp Hgb Conc 33.1 g/dL (32-36); Mean Corpuscular Hgb 30.9 pg (27.0-32.0); Mean Corpuscular Volume 93.5 fL (81-99); Mean Platelet Vol. 10.3 fl (6.2-12.0); Monocyte# 0.88 X10^3/uL; NRBC Flagged by Analyzer 0 % (0-5); Neutrophil # 5.88 X10^3/uL (2.7-7.7); Neutrophil % 66.5 % (47-70); Platelet Count 282 K/mm3 (150-450); RBC Distribution Width CV 14.1 % (11.6-14.6); RBC Distribution Width SD 48.2 fl (35.1-43.9); Red Blood Count 3.85 M/mm3 (4.2-5.4); White Blood Count 8.8 K/mm3 (4.4-11.0)
--- NOTE | 2022-05-18 12:40 | RAD_ITS ---
STUDY: X-RAY CHEST REASON FOR EXAM: Female, 71 years old. Dyspnea TECHNIQUE: PA and lateral views of the chest. COMPARISON: Comparison is made with prior study dated 07/10/2018. FINDINGS: EKG electrodes are seen. Stable pleural parenchymal changes at the left lung base suggestive of scarring. Increased markings in the right middle lobe suggestive of early right middle lobe infiltrate. There is no demonstrated pleural abnormality. Sternal cerclage wires and vascular clips are present from a prior sternotomy and coronary artery bypass graft procedure (CABG). Normal mediastinum and debra. Normal visualized pulmonary arteries. There is atherosclerotic calcification of the aortic arch with tortuosity. Normal visualized thoracic spine. Normal visualized ribs, clavicles, and shoulders. There is no demonstrated abnormality of the visualized soft tissue structures of the upper abdomen. RAD/Chest PA and Lateral IMPRESSION: New infiltrate in the right middle lobe. Stable pleural parenchymal changes at the left lung base suggestive of scarring. Electronically Signed: Napoleon Gonsalez MD at 13:02 EST ,
[2022-05-18 12:42] LABS: Anion Gap 3 (5-15); BUN 14 mg/dL (7-18); BUN/Creat Ratio 14.5 RATIO (10-20); Calcium,Total 9.4 mg/dL (8.5-10.1); Chloride 106 mmol/L (98-107); Creatinine, Serum 0.97 mg/dL (0.55-1.02); EST Glomerular Filtration Rate 61 mL/min (>60); Est Glom Filt Rate - Afr Amer 73 mL/min (>60); Estimated Creatinine Clearance 38.76 ml/min; Glucose 99 mg/dL (74-106); Potassium 3.9 mmol/L (3.5-5.1); Sodium Level 141 mmol/L (136-145); Troponin-I HS (w/2H Reflex) 9 pg/mL (3.0-54.0)
[2022-05-18 12:49] LABS: BNP,B-Type NATRIURETIC PEPTIDE 131.2 pg/mL (0-100)
[2022-05-18 12:57] VITALS: BP 131/76; PULSE 85; RESP 18; O2SAT 98
[2022-05-18 13:00] LABS: D-Dimer Quantitative (DVT/PE) 0.41 FEU/ug/m (0.27-0.49)
[2022-05-18 13:43] VITALS: BP 132/78; PULSE 95; RESP 18; O2SAT 97
[2022-05-18] MEDS: Doxycycline 100 MG CAPSULE PO (13:47)
[2022-05-18 14:12] LABS: Reflex Troponin-HS? (from REC) Y
== END 2022-05-18 13:53 | disposition home or self-care (01) ==
PROVIDERS: Emergency Provider Emergency Medicine; PCP Internal Medicine; Visit Provider Emergency Medicine
DX: J18.9 Pneumonia, unspecified organism (principal); R06.00 Dyspnea, unspecified
CPT/HCPCS: 71046; 80048; 83880; 84484; 85025; 85379; 93005; 99285; A4216

== ENCOUNTER 2023-04-18 10:57 | Emergency (ER) | payer OTHER, SELFPAY ==
[2023-04-18 10:59] VITALS: BP 140/82; PULSE 104; RESP 20; TEMP 36.4; O2SAT 98; BMI 24.4
--- NOTE | 2023-04-18 11:02 | ED.VIS.DYS ---
HPI History of Present Illness Chief Complaint: Shortness of Breath [facility] Medical History A-fib Home Medications Tikosyn 0.25 mg PO BID 06/27/15 [History Last Taken 07/10/18] warfarin 2 mg tablet (Jantoven) 2 mg PO MOTUTHFRSA 06/27/15 [History Last Taken 07/09/18] metoprolol tartrate 25 mg tablet 12.5 mg (1/2 x 25 mg) PO BID 07/12/18 [Rx Last Taken Unknown] warfarin 3 mg tablet (Jantoven) 3 mg PO SUWE 10/24/18 [History Last Taken Unknown] doxycycline monohydrate 100 mg capsule 100 mg PO BID #20 CAPSULES 05/18/22 [Rx Last Taken Unknown] Allergy/AdvReac Type Severity Reaction Status Date / Time No Known Allergies Allergy Verified 04/18/23 11:07 Surgical History H/O mitral valve replacement with mechanical valve Social History Smoking Status: Never smoker EXAM Physical Exam Const Vital Signs: 04/18/23 10:59 04/18/23 11:11 04/18/23 11:18 Temperature 97.5 F L Temperature Source Temporal Pulse Rate 104 H Respiratory Rate 20 H Respiratory Effort Normal Non-Labored Respiratory Depth Normal Respiratory Pattern Normal Blood Pressure 140/82 H Blood Pressure Mean 101 Pulse Ox 98 Oxygen Delivery Method Room Air Room Air Room Air 04/18/23 13:00 Temperature Temperature Source Pulse Rate 98 Respiratory Rate 18 Respiratory Effort Respiratory Depth Respiratory Pattern Blood Pressure Blood Pressure Mean Pulse Ox 96 Oxygen Delivery Method Room Air MDM MDM MDM Narrative Medical decision making narrative: HISTORY OF PRESENT ILLNESS: 72-year-old female presents with shortness of breath. The patient states. She had shortness of breath productive cough concern about pneumonia. She further states has been ongoing for last 2 weeks. No chest pain. The patient denies recent surgery in the last 4 weeks or immobilization in the last 3 days, denies previous diagnosis of DVT or PE, hemoptysis, unilateral leg swelling or malignancy with treatment the last 6 months or palliative. No estrogen use noted. Compliant with warfarin. No bleeding diathesis. REVIEW OF SYSTEMS: Pertinent positives: Shortness of breath, cough Pertinent negatives: Chest pain PHYSICAL EXAM: Nursing triage notes reviewed, Vital signs reviewed Constitutional: please see [facility] HENT: MMM Eyes: Pupils equal round and reactive to light, Extraocular muscles intact Neck: No stridor, no JVD, full neck ROM Lungs: Clear to auscultation, No wheezing or rales. No increased work of breathing, no conversational dyspnea, no accessory muscle use, no nasal flaring. No respiratory distress noted Heart: Regular rate and rhythm, No murmurs, No rubs and No gallops, 2+ distal pulses (radial, femoral, posterior tibial) in all extremities Abdomen: Soft, there is no tenderness, rigidity, rebound or guarding, no obvious peritoneal signs, no palpable pulsatile abdominal masses, no auscultated abdominal bruit : No CVAT Extremities: No edema Neuro: No focal neurological deficits, cranial nerves II through XII intact, 5/5 strength in all extremities. Intact sensation to light touch in all extremities, 2+ reflexes bilateral patella tendons. Normal gait. No ataxia. Skin: No rash or lesions noted MEDICAL DECISION MAKING: Chief Complaint: Shortness of breath External records reviewed: Echocardiogram reviewed from 2019 shows ejection fraction of 60% Factors affecting care: History of atrial fibrillation on Tikosyn and warfarin Social determinants of health: none History obtained from others: none Consults: none [facility] Narrative: Patient was initially tachycardic, tachypneic she is afebrile. I considered the following differential diagnosis: COVID, flu, pneumonia, anemia, arrhythmia, electrolyte disturbance ALL IMAGES (IF OBTAINED) HAVE BEEN PERSONALLY REVIEWED AND INTERPRETED BY MYSELF. EKG with normal sinus rhythm, left axis deviation, normal intervals, no STEMI CBC with no leukocytosis, anemia, no thrombocytopenia COVID and flu test are negative Troponin is negative, no evidence of myocardial ischemia INR within normal limits I have personally reviewed the patient's chest x-ray. Chest x-ray is unremarkable for pulmonary edema, pneumothorax, pneumonia or focal cardiopulmonary abnormality. I considered pulmonary embolism however the patient is low risk Wells score and as such have a low suspicion for PE. No indication for D-dimer or CT scan at this time. The synthesis of the patient's labs, images, history and physical exam presents with a viral illness. Recommended Tylenol, ibuprofen and time. Patient ambulated without significant hypoxia. Tachycardia and tachypnea resolved. Patient is appropriate for discharge home with close follow-up with her primary care physician and strict return precautions. The patient and/or family, caregivers express understanding. The patient and/or family, caregivers agrees with the plan. Shared decision making: I will have a discussion with the patient and or visitors regarding risk/benefits of further testing or admission. They will be made aware of of the risk/benefits inherent in this decision they will be given the opportunity to voice understanding. Total critical care time today provided was at least 0 minutes. This excludes separately billable procedures. Critical care time (if documented) is secondary to the patient having high probability of clinically significant/life threatening deterioration in the patient's condition which required my urgent intervention. Impression: 1. Shortness of breath 2. Tachycardia 3. Tachypnea 4. Anemia Dispo: Discharge Lab Data Labs: Laboratory Results - last 24 hr 04/18/23 11:20 WBC 6.5 RBC 3.95 L Hgb 11.5 L Hct 35.3 L MCV 89.4 MCH 29.1 MCHC 32.6 RDW Std Deviation 43.0 RDW Coeff of Adela 13.2 Plt Count 277 MPV 9.9 Immature Gran % (Auto) 0.300 Neut % (Auto) 65.2 Lymph % (Auto) 19.6 Parmer % (Auto) 13.3 H Eos % (Auto) 1.1 Baso % (Auto) 0.5 Absolute Neuts (auto) 4.3 Absolute Lymphs (auto) 1.28 Nucleated RBC % 0 PT 33.7 H INR 3.3 Sodium 139 Potassium 3.9 Chloride 105 Carbon Dioxide 30.0 Anion Gap 4 L BUN 17 Creatinine 0.94 Estim Creat Clear Calc 39.43 Est GFR (MDRD) Af Amer 76 Est GFR (MDRD) Non-Af 63 BUN/Creatinine Ratio 18.2 Glucose 105 Calcium 9.5 Troponin I High Sens 8 Radiography Diagnostic Testing: Clinical Impression(s) from Imaging Studies Chest X-Ray 04/18/23 11:35 IMPRESSION: Stable chest with no acute or emergent finding. Electronically Signed: Juan Jose Lobo MD at 14:18 EST , Discharge Plan Triage Chief Complaint: Shortness of Breath ED Provider: Horace Berger Dx/Rx/DC Orders Prescriptions: No Action warfarin [Jantoven] 2 MG tablet 2 mg PO MOTUTHFRSA Tikosyn 0.25 mg PO BID metoprolol tartrate 25 MG tablet 12.5 mg PO BID 0RF warfarin [Jantoven] 3 MG tablet 3 mg PO SUWE doxycycline monohydrate 100 mg capsule 100 mg PO BID Qty: 20 0RF Primary Care Provider: Lenora Louise Referrals: eLnora Louise MD [Primary Care Provider] -
[2023-04-18 11:11] VITALS: O2SAT 99
--- NOTE | 2023-04-18 11:15 | EKG12_ITS ---
Test Reason : SOB Blood Pressure : / mmHG Vent. Rate : 084 BPM Atrial Rate : 084 BPM P-R Int : 190 ms QRS Dur : 094 ms QT Int : 350 ms P-R-T Axes : 082 -61 068 degrees QTc Int : 413 ms Normal sinus rhythm with sinus arrhythmia Incomplete right bundle branch block Left anterior fascicular block Minimal voltage criteria for LVH, may be normal variant ( [place] product ) Abnormal ECG Confirmed by MENDEZ VARMA, XAVI ([id number]), photography editor TONA JUNIOR ([id number]) on 04/20/2023 12:47:13 PM Referred By: Confirmed By:XAVI SIMMS MD
[2023-04-18] MEDS: 0.9% Normal Saline (1000mL) 1,000 ML 999 ML IV (11:29)
[2023-04-18 11:30] LABS: Absolute Lymphocyte Count 1.28 X10^3/uL (0.83-4.51); Absolute Neutrophil Count 4.3 X10^3/uL (2.0-7.7); Basophil# 0.03 X10^3/uL; Basophil% 0.5 % (0-1); Eosinophil# 0.07 X10^3/uL; Eosinophils% 1.1 % (0-5); Hematocrit 35.3 % (37-47); Hemoglobin 11.5 g/dL (12.0-15.0); Lymphocyte # 1.28 X10^3/ul (0.83-4.51); Lymphocyte % 19.6 % (19-41); Mean Corp Hgb Conc 32.6 g/dL (32-36); Mean Corpuscular Hgb 29.1 pg (27.0-32.0); Mean Corpuscular Volume 89.4 fL (81-99); Mean Platelet Vol. 9.9 fl (6.2-12.0); Monocyte# 0.87 X10^3/uL; Monocyte% 13.3 % (0-10); NRBC Flagged by Analyzer 0 % (0-5); Neutrophil # 4.27 X10^3/uL (2.7-7.7); Neutrophil % 65.2 % (47-70); Platelet Count 277 K/mm3 (150-450); RBC Distribution Width CV 13.2 % (11.6-14.6); Red Blood Count 3.95 M/mm3 (4.2-5.4); White Blood Count 6.5 K/mm3 (4.4-11.0)
--- NOTE | 2023-04-18 11:35 | RAD_ITS ---
STUDY: X-RAY CHEST REASON FOR EXAM: Female, 72 years old. Cough with shortness of breath. TECHNIQUE: Frontal and lateral views of the chest. COMPARISON: May 18, 2022. FINDINGS: Stable cardiomegaly, sternotomy wires, aortic tortuosity with calcification, prominent central pulmonary arteries, hyperinflation and diffuse moderate thoracic spondylosis. No acute or emergent finding. No abnormality of the visualized soft tissue structures of the upper abdomen. RAD/Chest PA and Lateral IMPRESSION: Stable chest with no acute or emergent finding. Electronically Signed: Juan Jose Lobo MD at 14:18 EST ,
[2023-04-18 11:47] LABS: Anion Gap 4 (5-15); BUN 17 mg/dL (7-18); BUN/Creat Ratio 18.2 RATIO (10-20); Calcium,Total 9.5 mg/dL (8.5-10.1); Chloride 105 mmol/L (98-107); Creatinine, Serum 0.94 mg/dL (0.55-1.02); EST Glomerular Filtration Rate 63 mL/min (>60); Est Glom Filt Rate - Afr Amer 76 mL/min (>60); Estimated Creatinine Clearance 39.43 ml/min; Glucose 105 mg/dL (74-106); Potassium 3.9 mmol/L (3.5-5.1); Sodium Level 139 mmol/L (136-145); Troponin-I HS 8 pg/mL (3.0-54.0)
[2023-04-18 12:19] LABS: International Normalized Ratio 3.3; Prothrombin Time (Protime)PT. 33.7 SECONDS (11.7-14.9)
[2023-04-18 13:00] VITALS: PULSE 98; RESP 18; O2SAT 96
[2023-04-18 14:53] VITALS: O2SAT 96
[2023-04-18 15:00] VITALS: BP 140/74; BP 140/78; PULSE 97; RESP 16; O2SAT 97
== END 2023-04-18 15:28 | disposition home or self-care (01) ==
PROVIDERS: Emergency Provider Emergency Medicine; PCP Internal Medicine; Visit Provider Emergency Medicine
DX: R06.02 Shortness of breath (principal); R00.0 Tachycardia, unspecified; R06.82 Tachypnea, not elsewhere classified; D64.9 Anemia, unspecified
CPT/HCPCS: 71046; 80048; 84484; 85025; 85610; 87428; 93005; 99284; A4216